=== PATIENT | female | born 1945 | race African-American/Black ===

== ENCOUNTER 2016-05-16 10:00 | Outpatient (RCR) | payer MEDICARE ==
[2016-02-22 10:44] VITALS: BP 97/71; PULSE 83; TEMP 98.9
[2016-02-22 10:47] LABS: ADD PATHOLOGY DIFF REVIEW NO
[2016-02-22 10:49] LABS: MEAN CELL VOLUME 95 fl (80.0-100.0); MEAN CORPUSCULAR HGB CONC 33 g/dl (33.0-37.0); MEAN PLATELET VOLUME 10.3 fl (7.4-10.4); PLATELET COUNT 153 K/mm3 (130-400); RED BLOOD COUNT 3.35 M/mm3 (4.10-5.30); REDCELL DISTRIBUTION WIDTH-CV 18.6 % (11.5-14.5); WHITE BLOOD COUNT 9.4 K/mm3 (4.8-10.8)
[2016-02-22 10:53] LABS: HEMATOCRIT 31.9 % (37.0-47.0); HEMOGLOBIN 10.4 g/dl (12.5-16.0); MEAN CORPUSCULAR HEMOGLOBIN 31 pg (27.0-31.0)
[2016-02-22 11:11] LABS: ADJUSTED CALCIUM 8.4 mg/dL (8.4-10.2); ALBUMIN 3.7 gm/dL (3.5-5.0); BILIRUBIN,TOTAL 0.4 mg/dL (0.0-1.0); CALCIUM 8.2 mg/dL (8.4-10.2); CREATININE, serum 0.56 mg/dL (0.52-1.25); POTASSIUM 3.6 mmol/L (3.4-5.0); TOTAL PROTEIN 6.5 gm/dL (6.4-8.2)
[2016-02-22 11:23] LABS: BAND 20 % (0-10); EOSINOPHIL 2 % (0-4); NEUTROPHILS 52 % (42.0-75.2); TOTAL CELLS COUNTED 100
[2016-02-22 11:24] LABS: ANISOCYTOSIS 2+; HYPOCHROMIA 1+; POIKILOCYTOSIS 1+; POLYCHROMASIA 1+
[2016-02-22 11:25] LABS: SCHISTOCYTES 1+; TEAR DROP CELLS 1+
[2016-02-27 10:12] VITALS: BP 108/68; PULSE 86; TEMP 97.5
[2016-02-27 10:20] LABS: ADD PATHOLOGY DIFF REVIEW NO
[2016-02-27 10:24] LABS: MEAN CELL VOLUME 96 fl (80.0-100.0); MEAN CORPUSCULAR HGB CONC 32 g/dl (33.0-37.0); MEAN PLATELET VOLUME 10.4 fl (7.4-10.4); PLATELET COUNT 201 K/mm3 (130-400); RED BLOOD COUNT 3.47 M/mm3 (4.10-5.30); REDCELL DISTRIBUTION WIDTH-CV 18.7 % (11.5-14.5); WHITE BLOOD COUNT 6.4 K/mm3 (4.8-10.8)
[2016-02-27 10:27] LABS: HEMATOCRIT 33.2 % (37.0-47.0); HEMOGLOBIN 10.7 g/dl (12.5-16.0); MEAN CORPUSCULAR HEMOGLOBIN 31 pg (27.0-31.0)
[2016-02-27 10:41] LABS: BAND 5 % (0-10); BASOPHIL 1 % (0-2); METAMYELOCYTE 2 % (0-0); NEUTROPHILS 61 % (42.0-75.2); PLATELET ESTIMATE NORMAL (NORMAL); TOTAL CELLS COUNTED 100
[2016-02-27 10:42] LABS: OVALOCYTES 1+; SCHISTOCYTES 1+; TEAR DROP CELLS 1+
[2016-03-07 10:11] LABS: ADD PATHOLOGY DIFF REVIEW NO
[2016-03-07 10:16] LABS: MEAN CELL VOLUME 95 fl (80.0-100.0); MEAN CORPUSCULAR HGB CONC 33 g/dl (33.0-37.0); MEAN PLATELET VOLUME 10.9 fl (7.4-10.4); PLATELET COUNT 128 K/mm3 (130-400); REDCELL DISTRIBUTION WIDTH-CV 18.1 % (11.5-14.5)
[2016-03-07 10:17] VITALS: BP 108/63; PULSE 95; TEMP 98.1
[2016-03-07 10:21] LABS: HEMOGLOBIN 11.8 g/dl (12.5-16.0); MEAN CORPUSCULAR HEMOGLOBIN 31 pg (27.0-31.0); WHITE BLOOD COUNT 25.9 K/mm3 (4.8-10.8)
[2016-03-07 10:46] LABS: ANISOCYTOSIS 1+; BAND 11 % (0-10); HYPOCHROMIA 1+; NEUTROPHILS 81 % (42.0-75.2); PLATELET ESTIMATE DECREASED (NORMAL); TEAR DROP CELLS 2+; TOTAL CELLS COUNTED 200
[2016-03-14 10:48] VITALS: BP 120/54; PULSE 75; TEMP 97.6
[2016-03-14 11:22] LABS: ADD PATHOLOGY DIFF REVIEW NO
[2016-03-14 11:27] LABS: MEAN CELL VOLUME 94 fl (80.0-100.0); MEAN CORPUSCULAR HGB CONC 33 g/dl (33.0-37.0); MEAN PLATELET VOLUME 11.2 fl (7.4-10.4); PLATELET COUNT 101 K/mm3 (130-400); RED BLOOD COUNT 3.54 M/mm3 (4.10-5.30); REDCELL DISTRIBUTION WIDTH-CV 17.1 % (11.5-14.5); WHITE BLOOD COUNT 6.6 K/mm3 (4.8-10.8)
[2016-03-14 11:28] LABS: HEMATOCRIT 33.3 % (37.0-47.0); MEAN CORPUSCULAR HEMOGLOBIN 31 pg (27.0-31.0)
[2016-03-14 11:38] LABS: ADJUSTED CALCIUM 8.6 mg/dL (8.4-10.2); ALBUMIN 3.9 gm/dL (3.5-5.0); BILIRUBIN,TOTAL 0.5 mg/dL (0.0-1.0); CALCIUM 8.5 mg/dL (8.4-10.2); CREATININE, serum 0.53 mg/dL (0.52-1.25); POTASSIUM 3.7 mmol/L (3.4-5.0); TOTAL PROTEIN 6.7 gm/dL (6.4-8.2)
[2016-03-14 12:00] LABS: BAND 23 % (0-10); EOSINOPHIL 2 % (0-4); NEUTROPHILS 51 % (42.0-75.2); PLATELET ESTIMATE DECREASED (NORMAL); TEAR DROP CELLS 2+; TOTAL CELLS COUNTED 100
[2016-03-21 10:28] LABS: ADD PATHOLOGY DIFF REVIEW NO
[2016-03-21 10:32] VITALS: BP 113/74; PULSE 77; TEMP 98.7
[2016-03-21 10:34] LABS: MEAN CELL VOLUME 94 fl (80.0-100.0); MEAN CORPUSCULAR HGB CONC 32 g/dl (33.0-37.0); MEAN PLATELET VOLUME 10.6 fl (7.4-10.4); PLATELET COUNT 167 K/mm3 (130-400); RED BLOOD COUNT 3.49 M/mm3 (4.10-5.30); REDCELL DISTRIBUTION WIDTH-CV 17.4 % (11.5-14.5); WHITE BLOOD COUNT 11.5 K/mm3 (4.8-10.8)
[2016-03-21 10:39] LABS: HEMATOCRIT 32.7 % (37.0-47.0); HEMOGLOBIN 10.5 g/dl (12.5-16.0); MEAN CORPUSCULAR HEMOGLOBIN 30 pg (27.0-31.0)
[2016-03-21 10:52] LABS: EOSINOPHIL 2 % (0-4); NEUTROPHILS 78 % (42.0-75.2); PLATELET ESTIMATE NORMAL (NORMAL); TOTAL CELLS COUNTED 100
[2016-03-28 10:12] VITALS: BP 100/67; PULSE 74; TEMP 99.1
[2016-03-28 11:41] LABS: ADD PATHOLOGY DIFF REVIEW NO
[2016-03-28 11:47] LABS: MEAN CELL VOLUME 94 fl (80.0-100.0); MEAN CORPUSCULAR HEMOGLOBIN 31 pg (27.0-31.0); MEAN CORPUSCULAR HGB CONC 33 g/dl (33.0-37.0); PLATELET COUNT 193 K/mm3 (130-400); RED BLOOD COUNT 3.92 M/mm3 (4.10-5.30)
[2016-03-28 11:55] LABS: HEMATOCRIT 36.9 % (37.0-47.0)
[2016-03-28 12:00] LABS: WHITE BLOOD COUNT 33.2 K/mm3 (4.8-10.8)
[2016-03-28 13:55] LABS: NEUTROPHILS 91 % (42.0-75.2); TOTAL CELLS COUNTED 100
[2016-03-28 13:56] LABS: ROULEAUX 1+
[2016-04-04 10:22] VITALS: BP 119/79; PULSE 83; TEMP 98.3
[2016-04-04 10:38] LABS: ADD PATHOLOGY DIFF REVIEW NO
[2016-04-04 10:49] LABS: MEAN CELL VOLUME 93 fl (80.0-100.0); MEAN CORPUSCULAR HGB CONC 33 g/dl (33.0-37.0); MEAN PLATELET VOLUME 11.4 fl (7.4-10.4); PLATELET COUNT 127 K/mm3 (130-400); RED BLOOD COUNT 3.63 M/mm3 (4.10-5.30); REDCELL DISTRIBUTION WIDTH-CV 17.9 % (11.5-14.5); WHITE BLOOD COUNT 7.4 K/mm3 (4.8-10.8)
[2016-04-04 10:52] LABS: HEMATOCRIT 33.8 % (37.0-47.0); HEMOGLOBIN 11.1 g/dl (12.5-16.0); MEAN CORPUSCULAR HEMOGLOBIN 31 pg (27.0-31.0)
[2016-04-04 10:53] LABS: ADJUSTED CALCIUM 8.5 mg/dL (8.4-10.2); ALBUMIN 4.2 gm/dL (3.5-5.0); BILIRUBIN,TOTAL 0.6 mg/dL (0.0-1.0); CALCIUM 8.7 mg/dL (8.4-10.2); CREATININE, serum 0.67 mg/dL (0.52-1.25); POTASSIUM 4.1 mmol/L (3.4-5.0); TOTAL PROTEIN 7.2 gm/dL (6.4-8.2)
[2016-04-04 12:02] LABS: BAND 16 % (0-10); BASOPHIL 2 % (0-2); METAMYELOCYTE 1 % (0-0); NEUTROPHILS 55 % (42.0-75.2); TOTAL CELLS COUNTED 100
[2016-04-04 12:03] LABS: ANISOCYTOSIS 1+; OVALOCYTES 1+; PLATELET ESTIMATE DECREASED (NORMAL)
[2016-04-04 12:04] LABS: TEAR DROP CELLS 1+
[2016-04-11 10:25] VITALS: BP 121/67; PULSE 86; TEMP 97.8
[2016-04-11 10:33] LABS: ADD PATHOLOGY DIFF REVIEW NO
[2016-04-11 10:45] LABS: MEAN CELL VOLUME 95 fl (80.0-100.0); MEAN CORPUSCULAR HGB CONC 32 g/dl (33.0-37.0); MEAN PLATELET VOLUME 10.7 fl (7.4-10.4); PLATELET COUNT 145 K/mm3 (130-400); RED BLOOD COUNT 3.38 M/mm3 (4.10-5.30); REDCELL DISTRIBUTION WIDTH-CV 18.6 % (11.5-14.5); WHITE BLOOD COUNT 11.2 K/mm3 (4.8-10.8)
[2016-04-11 10:54] LABS: HEMATOCRIT 32.1 % (37.0-47.0); HEMOGLOBIN 10.3 g/dl (12.5-16.0); MEAN CORPUSCULAR HEMOGLOBIN 30 pg (27.0-31.0)
[2016-04-11 12:48] LABS: BAND 21 % (0-10); EOSINOPHIL 2 % (0-4); METAMYELOCYTE 2 % (0-0); NEUTROPHILS 46 % (42.0-75.2); TOTAL CELLS COUNTED 100
[2016-04-11 12:51] LABS: ANISOCYTOSIS 2+; TEAR DROP CELLS 1+
[2016-04-18 10:46] VITALS: BP 105/64; PULSE 75; TEMP 98.3
[2016-04-18 10:52] LABS: ADD PATHOLOGY DIFF REVIEW NO
[2016-04-18 11:05] LABS: HEMATOCRIT 38.1 % (37.0-47.0); HEMOGLOBIN 12.5 g/dl (12.5-16.0); MEAN CELL VOLUME 94 fl (80.0-100.0); MEAN CORPUSCULAR HEMOGLOBIN 31 pg (27.0-31.0); MEAN CORPUSCULAR HGB CONC 33 g/dl (33.0-37.0); MEAN PLATELET VOLUME 11.4 fl (7.4-10.4); PLATELET COUNT 135 K/mm3 (130-400); RED BLOOD COUNT 4.07 M/mm3 (4.10-5.30); REDCELL DISTRIBUTION WIDTH-CV 18.7 % (11.5-14.5)
[2016-04-18 11:10] LABS: WHITE BLOOD COUNT 39.6 K/mm3 (4.8-10.8)
[2016-04-18 11:32] LABS: NEUTROPHILS 93 % (42.0-75.2); TOTAL CELLS COUNTED 100
[2016-04-18 11:35] LABS: TEAR DROP CELLS 1+
[2016-04-25 09:55] VITALS: BP 137/80; PULSE 72; TEMP 98.5
[2016-04-25 10:29] LABS: ADD PATHOLOGY DIFF REVIEW NO
[2016-04-25 10:37] LABS: HEMATOCRIT 32.1 % (37.0-47.0); HEMOGLOBIN 10.4 g/dl (12.5-16.0); MEAN CELL VOLUME 93 fl (80.0-100.0); MEAN CORPUSCULAR HEMOGLOBIN 30 pg (27.0-31.0); MEAN CORPUSCULAR HGB CONC 32 g/dl (33.0-37.0); MEAN PLATELET VOLUME 11.5 fl (7.4-10.4); PLATELET COUNT 78 K/mm3 (130-400); RED BLOOD COUNT 3.44 M/mm3 (4.10-5.30); REDCELL DISTRIBUTION WIDTH-CV 17.4 % (11.5-14.5); WHITE BLOOD COUNT 4.2 K/mm3 (4.8-10.8)
[2016-04-25 10:47] LABS: ADJUSTED CALCIUM 9.2 mg/dL (8.4-10.2); BILIRUBIN,TOTAL 0.6 mg/dL (0.0-1.0); CALCIUM 9.2 mg/dL (8.4-10.2); CREATININE, serum 0.63 mg/dL (0.52-1.25); POTASSIUM 4.1 mmol/L (3.4-5.0); TOTAL PROTEIN 6.8 gm/dL (6.4-8.2)
[2016-04-25 10:55] LABS: BAND 4 % (0-10); NEUTROPHILS 49 % (42.0-75.2); PLATELET ESTIMATE DECREASED (NORMAL); TOTAL CELLS COUNTED 100
[2016-05-02 10:19] VITALS: BP 121/70; PULSE 79; TEMP 98.5
[2016-05-02 10:38] LABS: ADD PATHOLOGY DIFF REVIEW NO
[2016-05-02 10:44] LABS: MEAN CELL VOLUME 95 fl (80.0-100.0); MEAN CORPUSCULAR HGB CONC 32 g/dl (33.0-37.0); MEAN PLATELET VOLUME 10.5 fl (7.4-10.4); PLATELET COUNT 164 K/mm3 (130-400); RED BLOOD COUNT 3.31 M/mm3 (4.10-5.30); WHITE BLOOD COUNT 8.3 K/mm3 (4.8-10.8)
[2016-05-02 10:45] LABS: HEMATOCRIT 31.5 % (37.0-47.0); HEMOGLOBIN 10.2 g/dl (12.5-16.0); MEAN CORPUSCULAR HEMOGLOBIN 31 pg (27.0-31.0)
[2016-05-02 14:35] LABS: ANISOCYTOSIS 2+; BAND 10 % (0-10); EOSINOPHIL 2 % (0-4); NEUTROPHILS 57 % (42.0-75.2); POLYCHROMASIA 1+; TOTAL CELLS COUNTED 100
[2016-05-02 14:36] LABS: TEAR DROP CELLS 1+
[2016-05-09 10:37] VITALS: BP 100/66; PULSE 82; TEMP 98
[2016-05-09 10:37] LABS: ADD PATHOLOGY DIFF REVIEW NO
[2016-05-09 10:41] LABS: MEAN CELL VOLUME 94 fl (80.0-100.0); MEAN CORPUSCULAR HGB CONC 33 g/dl (33.0-37.0); MEAN PLATELET VOLUME 10.7 fl (7.4-10.4); PLATELET COUNT 127 K/mm3 (130-400); RED BLOOD COUNT 3.65 M/mm3 (4.10-5.30); REDCELL DISTRIBUTION WIDTH-CV 18.9 % (11.5-14.5)
[2016-05-09 10:50] LABS: HEMATOCRIT 34.3 % (37.0-47.0); HEMOGLOBIN 11.4 g/dl (12.5-16.0); MEAN CORPUSCULAR HEMOGLOBIN 31 pg (27.0-31.0); WHITE BLOOD COUNT 31.6 K/mm3 (4.8-10.8)
[2016-05-09 11:05] LABS: BAND 16 % (0-10); NEUTROPHILS 79 % (42.0-75.2); OVALOCYTES 1+; PLATELET ESTIMATE NORMAL (NORMAL); TEAR DROP CELLS 2+
[2016-05-09 11:06] LABS: TOTAL CELLS COUNTED 300
[~2016-05-16] VITALS: Ht 165.1 cm; Wt 75.5 kg
[~2016-05-16 10:00] MED LIST: AMOXICILLIN 8751 TAB PO; CALCIUM 600/VIT1 CAP PO; CRESTOR 10MG10 MG PO; FISH OIL 1000MG1 CAP PO; FOSAMAX 70MG TA70 MG PO; K-DUR 10 MEQ T10 MEQ PO; LASIX 20MG TABL20 MG PO; NORCO 325 MG-51 TAB PO
[2016-05-16 10:36] VITALS: BP 110/65; PULSE 75; TEMP 97.8
[2016-05-16 10:39] LABS: ADD PATHOLOGY DIFF REVIEW NO
[2016-05-16 10:46] LABS: MEAN CELL VOLUME 95 fl (80.0-100.0); MEAN CORPUSCULAR HGB CONC 33 g/dl (33.0-37.0); MEAN PLATELET VOLUME 11.2 fl (7.4-10.4); PLATELET COUNT 121 K/mm3 (130-400); RED BLOOD COUNT 3.63 M/mm3 (4.10-5.30); REDCELL DISTRIBUTION WIDTH-CV 18.3 % (11.5-14.5); WHITE BLOOD COUNT 8.6 K/mm3 (4.8-10.8)
[2016-05-16 10:52] LABS: HEMATOCRIT 34.5 % (37.0-47.0); HEMOGLOBIN 11.2 g/dl (12.5-16.0); MEAN CORPUSCULAR HEMOGLOBIN 31 pg (27.0-31.0)
[2016-05-16 10:58] LABS: BAND 14 % (0-10); EOSINOPHIL 2 % (0-4); METAMYELOCYTE 1 % (0-0); MYELOCYTE 1 % (0-0); NEUTROPHILS 55 % (42.0-75.2); PLATELET ESTIMATE NORMAL (NORMAL); POLYCHROMASIA 1+; TEAR DROP CELLS 1+; TOTAL CELLS COUNTED 100
[2016-05-16 11:10] LABS: ADJUSTED CALCIUM 9.1 mg/dL (8.4-10.2); ALBUMIN 3.9 gm/dL (3.5-5.0); BILIRUBIN,TOTAL 0.7 mg/dL (0.0-1.0); CREATININE, serum 0.63 mg/dL (0.52-1.25); POTASSIUM 4.3 mmol/L (3.4-5.0); TOTAL PROTEIN 6.6 gm/dL (6.4-8.2)
[2016-07-22] MEDS ORDERED: ELIQUIS 2.5 PO (09:07)
[2016-07-22] MEDS ORDERED: CHEMO (09:28)
[2016-07-22] MEDS ORDERED: PERCOCET 325 MG1 TA2 PO (14:38)
[2016-07-22] MEDS ORDERED: FISH OIL 1000MG1 CAP PO (14:42)
[2016-07-22] MEDS ORDERED: NEURONTIN300 MG/CAP PO (14:43)
[2016-07-22] MEDS ORDERED: LAMISIL1% TOP (14:43)
[2016-07-22] MEDS ORDERED: LOMOTIL 0.025 M1 TAB PO (14:44)
[2016-07-22] MEDS ORDERED: ZOFRAN8 MG PO (14:47)
[2016-07-22] MEDS ORDERED: VITAMIN D 1001000 IU PO (14:47)
== END 2016-05-22 | disposition still patient (30) ==
LOC: EUO
PROVIDERS: Internal Medicine Medical Oncology
DX: C25.0 Malignant neoplasm of head of pancreas (principal); K86.81 Exocrine pancreatic insufficiency; Z45.2 Encounter for adjustment and management of vascular access device
CPT/HCPCS: J1644

== ENCOUNTER 2016-07-04 10:00 | Outpatient (RCR) | payer MEDICARE ==
[2016-05-23 10:54] VITALS: BP 118/72; PULSE 80; TEMP 98.1
[2016-05-23 10:58] LABS: ADD PATHOLOGY DIFF REVIEW NO
[2016-05-23 11:01] LABS: HEMATOCRIT 33.7 % (37.0-47.0); MEAN CELL VOLUME 96 fl (80.0-100.0); MEAN CORPUSCULAR HEMOGLOBIN 31 pg (27.0-31.0); MEAN CORPUSCULAR HGB CONC 33 g/dl (33.0-37.0); MEAN PLATELET VOLUME 10.7 fl (7.4-10.4); PLATELET COUNT 168 K/mm3 (130-400); RED BLOOD COUNT 3.53 M/mm3 (4.10-5.30); REDCELL DISTRIBUTION WIDTH-CV 18.6 % (11.5-14.5); WHITE BLOOD COUNT 11.6 K/mm3 (4.8-10.8)
[2016-05-23 11:30] LABS: BAND 7 % (0-10); EOSINOPHIL 1 % (0-4); NEUTROPHILS 74 % (42.0-75.2); TOTAL CELLS COUNTED 100
[2016-05-23 11:31] LABS: PLATELET ESTIMATE NORMAL (NORMAL)
[2016-05-30 11:20] VITALS: BP 109/60; PULSE 94; TEMP 98.2
[2016-05-30 11:40] LABS: ADD PATHOLOGY DIFF REVIEW NO
[2016-05-30 11:45] LABS: HEMOGLOBIN 12.8 g/dl (12.5-16.0); MEAN CELL VOLUME 95 fl (80.0-100.0); MEAN CORPUSCULAR HEMOGLOBIN 31 pg (27.0-31.0); MEAN CORPUSCULAR HGB CONC 33 g/dl (33.0-37.0); MEAN PLATELET VOLUME 10.9 fl (7.4-10.4); PLATELET COUNT 186 K/mm3 (130-400); RED BLOOD COUNT 4.11 M/mm3 (4.10-5.30); REDCELL DISTRIBUTION WIDTH-CV 18.6 % (11.5-14.5)
[2016-05-30 11:46] LABS: WHITE BLOOD COUNT 39.2 K/mm3 (4.8-10.8)
[2016-05-30 11:57] LABS: BAND 12 % (0-10); NEUTROPHILS 85 % (42.0-75.2); PLATELET ESTIMATE NORMAL (NORMAL); TOTAL CELLS COUNTED 100
[2016-06-06 10:31] VITALS: BP 97/65; PULSE 89; TEMP 98
[2016-06-06 10:31] LABS: ADD PATHOLOGY DIFF REVIEW NO
[2016-06-06 10:35] LABS: MEAN CELL VOLUME 92 fl (80.0-100.0); MEAN CORPUSCULAR HGB CONC 33 g/dl (33.0-37.0); MEAN PLATELET VOLUME 11.7 fl (7.4-10.4); PLATELET COUNT 82 K/mm3 (130-400); RED BLOOD COUNT 3.61 M/mm3 (4.10-5.30); REDCELL DISTRIBUTION WIDTH-CV 16.6 % (11.5-14.5); WHITE BLOOD COUNT 3.4 K/mm3 (4.8-10.8)
[2016-06-06 10:39] LABS: HEMATOCRIT 33.2 % (37.0-47.0); HEMOGLOBIN 11.1 g/dl (12.5-16.0); MEAN CORPUSCULAR HEMOGLOBIN 31 pg (27.0-31.0)
[2016-06-06 10:55] LABS: BAND 17 % (0-10); BASOPHIL 1 % (0-2); EOSINOPHIL 5 % (0-4); METAMYELOCYTE 1 % (0-0); NEUTROPHILS 29 % (42.0-75.2); TOTAL CELLS COUNTED 100
[2016-06-06 10:56] LABS: PLATELET ESTIMATE DECREASED (NORMAL)
[2016-06-12 10:19] VITALS: BP 107/65; PULSE 88; TEMP 97.8
[2016-06-12 10:39] LABS: ADD PATHOLOGY DIFF REVIEW NO
[2016-06-12 10:44] LABS: HEMATOCRIT 33.1 % (37.0-47.0); HEMOGLOBIN 11.1 g/dl (12.5-16.0); MEAN CELL VOLUME 94 fl (80.0-100.0); MEAN CORPUSCULAR HEMOGLOBIN 31 pg (27.0-31.0); MEAN CORPUSCULAR HGB CONC 34 g/dl (33.0-37.0); MEAN PLATELET VOLUME 10.6 fl (7.4-10.4); PLATELET COUNT 142 K/mm3 (130-400); RED BLOOD COUNT 3.54 M/mm3 (4.10-5.30); REDCELL DISTRIBUTION WIDTH-CV 17.5 % (11.5-14.5); WHITE BLOOD COUNT 9.6 K/mm3 (4.8-10.8)
[2016-06-12 10:59] LABS: BAND 14 % (0-10); EOSINOPHIL 1 % (0-4); NEUTROPHILS 67 % (42.0-75.2); TOTAL CELLS COUNTED 100
[2016-06-20 10:20] VITALS: BP 114/66; PULSE 79; TEMP 97.9
[2016-06-20 10:24] LABS: ADD PATHOLOGY DIFF REVIEW NO
[2016-06-20 10:42] LABS: MEAN CELL VOLUME 94 fl (80.0-100.0); MEAN CORPUSCULAR HGB CONC 33 g/dl (33.0-37.0); MEAN PLATELET VOLUME 10.8 fl (7.4-10.4); PLATELET COUNT 135 K/mm3 (130-400); RED BLOOD COUNT 3.51 M/mm3 (4.10-5.30); REDCELL DISTRIBUTION WIDTH-CV 18.6 % (11.5-14.5)
[2016-06-20 10:52] LABS: ADJUSTED CALCIUM 8.7 mg/dL (8.4-10.2); ALBUMIN 3.5 gm/dL (3.5-5.0); BILIRUBIN,TOTAL 0.8 mg/dL (0.0-1.0); CALCIUM 8.3 mg/dL (8.4-10.2); CREATININE, serum 0.6 mg/dL (0.52-1.25); HEMATOCRIT 32.9 % (37.0-47.0); MEAN CORPUSCULAR HEMOGLOBIN 31 pg (27.0-31.0); TOTAL PROTEIN 6.3 gm/dL (6.4-8.2); WHITE BLOOD COUNT 33.4 K/mm3 (4.8-10.8)
[2016-06-20 11:05] LABS: POTASSIUM 2.8 mmol/L (3.4-5.0)
[2016-06-20 11:27] LABS: BAND 8 % (0-10); NEUTROPHILS 86 % (42.0-75.2); TOTAL CELLS COUNTED 300
[2016-06-20 11:28] LABS: PLATELET ESTIMATE NORMAL (NORMAL)
[2016-06-20 11:32] LABS: ANISOCYTOSIS 1+; TOXIC GRANULATION PRESENT
[2016-06-27 10:20] VITALS: BP 116/73; PULSE 90; TEMP 98.2
[2016-06-27 10:29] LABS: ADD PATHOLOGY DIFF REVIEW NO
[2016-06-27 10:43] LABS: MEAN CELL VOLUME 94 fl (80.0-100.0); MEAN CORPUSCULAR HGB CONC 33 g/dl (33.0-37.0); MEAN PLATELET VOLUME 11.8 fl (7.4-10.4); PLATELET COUNT 91 K/mm3 (130-400); RED BLOOD COUNT 3.38 M/mm3 (4.10-5.30); WHITE BLOOD COUNT 4.6 K/mm3 (4.8-10.8)
[2016-06-27 10:46] LABS: HEMATOCRIT 31.7 % (37.0-47.0); HEMOGLOBIN 10.5 g/dl (12.5-16.0); MEAN CORPUSCULAR HEMOGLOBIN 31 pg (27.0-31.0)
[2016-06-27 15:59] LABS: BAND 12 % (0-10); BASOPHIL 2 % (0-2); NEUTROPHILS 26 % (42.0-75.2); PLATELET ESTIMATE DECREASED (NORMAL); TOTAL CELLS COUNTED 100
[2016-06-27 16:02] LABS: ANISOCYTOSIS 2+; POLYCHROMASIA 1+; TEAR DROP CELLS 2+
[2016-07-04 10:16] VITALS: BP 102/60; PULSE 88; TEMP 98.7
[2016-07-04 10:30] LABS: ADD PATHOLOGY DIFF REVIEW NO
[2016-07-04 10:31] LABS: MEAN CELL VOLUME 96 fl (80.0-100.0); MEAN CORPUSCULAR HGB CONC 33 g/dl (33.0-37.0); MEAN PLATELET VOLUME 10.1 fl (7.4-10.4); PLATELET COUNT 137 K/mm3 (130-400); RED BLOOD COUNT 2.98 M/mm3 (4.10-5.30); REDCELL DISTRIBUTION WIDTH-CV 19.1 % (11.5-14.5); WHITE BLOOD COUNT 15.8 K/mm3 (4.8-10.8)
[2016-07-04 10:39] LABS: HEMATOCRIT 28.5 % (37.0-47.0); HEMOGLOBIN 9.4 g/dl (12.5-16.0); MEAN CORPUSCULAR HEMOGLOBIN 32 pg (27.0-31.0)
[2016-07-04 12:29] LABS: NEUTROPHILS 72 % (42.0-75.2)
[2016-07-04 12:32] LABS: PLATELET ESTIMATE NORMAL (NORMAL)
[2016-07-04 12:34] LABS: ANISOCYTOSIS 2+; OVALOCYTES 1+; POIKILOCYTOSIS 2+; POLYCHROMASIA 1+; TEAR DROP CELLS 2+
[2016-07-04 12:41] LABS: DOHLE BODIES PRESENT; TOXIC GRANULATION PRESENT
[2016-07-04 12:44] LABS: BAND 8 % (0-10); METAMYELOCYTE 2 % (0-0); MYELOCYTE 2 % (0-0); TOTAL CELLS COUNTED 100
[2016-07-07 12:30] VITALS: BP 138/66; PULSE 82; TEMP 99.3
[2016-07-22] MEDS ORDERED: ELIQUIS 2.5 PO (09:07)
[2016-07-22] MEDS ORDERED: CHEMO (09:28)
[2016-07-22] MEDS ORDERED: PERCOCET 325 MG1 TA2 PO (14:38)
[2016-07-22] MEDS ORDERED: FISH OIL 1000MG1 CAP PO (14:42)
[2016-07-22] MEDS ORDERED: NEURONTIN300 MG/CAP PO (14:43)
[2016-07-22] MEDS ORDERED: LAMISIL1% TOP (14:43)
[2016-07-22] MEDS ORDERED: LOMOTIL 0.025 M1 TAB PO (14:44)
[2016-07-22] MEDS ORDERED: VITAMIN D 1001000 IU PO (14:47)
[2016-07-22] MEDS ORDERED: ZOFRAN8 MG PO (14:47)
== END 2016-07-18 10:18 | disposition home or self-care (01) ==
LOC: EUO 10:00
PROVIDERS: Internal Medicine; Internal Medicine Medical Oncology
DX: Z45.2 Encounter for adjustment and management of vascular access device (principal)
CPT/HCPCS: J1644

== ENCOUNTER 2016-10-17 10:00 | Outpatient (RCR) | payer MEDICARE ==
[2016-07-21 09:40] VITALS: BP 121/67; PULSE 80; TEMP 99
[2016-07-22 09:15] VITALS: BP 132/71; PULSE 78; TEMP 98.4
[2016-07-25 10:30] LABS: ADD PATHOLOGY DIFF REVIEW NO
[2016-07-25 10:40] VITALS: BP 101/76; PULSE 88; TEMP 98
[2016-07-25 10:45] LABS: MEAN CELL VOLUME 94 fl (80.0-100.0); MEAN CORPUSCULAR HGB CONC 32 g/dl (33.0-37.0); PLATELET COUNT 262 K/mm3 (130-400); RED BLOOD COUNT 3.53 M/mm3 (4.10-5.30); REDCELL DISTRIBUTION WIDTH-CV 17.7 % (11.5-14.5)
[2016-07-25 10:50] LABS: HEMATOCRIT 33.3 % (37.0-47.0); HEMOGLOBIN 10.8 g/dl (12.5-16.0); MEAN CORPUSCULAR HEMOGLOBIN 31 pg (27.0-31.0)
[2016-07-25 10:51] LABS: WHITE BLOOD COUNT 35.9 K/mm3 (4.8-10.8)
[2016-07-25 10:57] LABS: ADJUSTED CALCIUM 9.2 mg/dL (8.4-10.2); ALBUMIN 3.8 gm/dL (3.5-5.0); BILIRUBIN,TOTAL 0.8 mg/dL (0.0-1.0); CREATININE, serum 0.63 mg/dL (0.52-1.25); POTASSIUM 3.6 mmol/L (3.4-5.0); TOTAL PROTEIN 7.8 gm/dL (6.4-8.2)
[2016-07-25 12:43] LABS: ANISOCYTOSIS 2+; BAND 5 % (0-10); NEUTROPHILS 91 % (42.0-75.2); PLATELET ESTIMATE NORMAL (NORMAL)
[2016-07-25 12:44] LABS: TOTAL CELLS COUNTED 300
[2016-08-01 10:07] LABS: MEAN CELL VOLUME 93 fl (80.0-100.0); MEAN CORPUSCULAR HGB CONC 32 g/dl (33.0-37.0); MEAN PLATELET VOLUME 10.8 fl (7.4-10.4); PLATELET COUNT 85 K/mm3 (130-400); RED BLOOD COUNT 3.18 M/mm3 (4.10-5.30); REDCELL DISTRIBUTION WIDTH-CV 17.3 % (11.5-14.5); WHITE BLOOD COUNT 4.7 K/mm3 (4.8-10.8)
[2016-08-01 10:20] LABS: ADJUSTED CALCIUM 9.4 mg/dL (8.4-10.2); ALBUMIN 3.7 gm/dL (3.5-5.0); BILIRUBIN,TOTAL 0.6 mg/dL (0.0-1.0); CALCIUM 9.2 mg/dL (8.4-10.2); CREATININE, serum 0.71 mg/dL (0.52-1.25); TOTAL PROTEIN 7.2 gm/dL (6.4-8.2)
[2016-08-01 10:33] LABS: HEMATOCRIT 29.7 % (37.0-47.0); HEMOGLOBIN 9.6 g/dl (12.5-16.0); MEAN CORPUSCULAR HEMOGLOBIN 30 pg (27.0-31.0)
[2016-08-01 11:54] LABS: BAND 20 % (0-10); EOSINOPHIL 1 % (0-4); METAMYELOCYTE 3 % (0-0); NEUTROPHILS 38 % (42.0-75.2); TOTAL CELLS COUNTED 100
[2016-08-01 11:55] LABS: ANISOCYTOSIS 2+; DOHLE BODIES PRESENT; TOXIC GRANULATION PRESENT
[2016-08-01 11:56] LABS: POLYCHROMASIA 1+; TEAR DROP CELLS 2+
[2016-08-01 11:57] LABS: ADD PATHOLOGY DIFF REVIEW YES
[2016-08-01 12:00] LABS: PLATELET ESTIMATE DECREASED (NORMAL)
[2016-08-04 14:29] LABS: PATHOLOGY DIFF REVIEW OK
[2016-08-07 11:26] VITALS: BP 111/75; PULSE 77; TEMP 98.2
[2016-08-07 11:39] LABS: ADD PATHOLOGY DIFF REVIEW NO
[2016-08-07 11:44] LABS: MEAN CELL VOLUME 94 fl (80.0-100.0); MEAN CORPUSCULAR HGB CONC 32 g/dl (33.0-37.0); MEAN PLATELET VOLUME 10.6 fl (7.4-10.4); PLATELET COUNT 117 K/mm3 (130-400); RED BLOOD COUNT 3.22 M/mm3 (4.10-5.30); REDCELL DISTRIBUTION WIDTH-CV 17.6 % (11.5-14.5)
[2016-08-07 12:22] LABS: HEMATOCRIT 30.3 % (37.0-47.0); HEMOGLOBIN 9.8 g/dl (12.5-16.0); MEAN CORPUSCULAR HEMOGLOBIN 30 pg (27.0-31.0)
[2016-08-07 12:24] LABS: BAND 1 % (0-10); BASOPHIL 3 % (0-2); EOSINOPHIL 1 % (0-4); NEUTROPHILS 61 % (42.0-75.2); TOTAL CELLS COUNTED 100
[2016-08-07 12:26] LABS: ANISOCYTOSIS 1+; HYPOCHROMIA 1+; MICROCYTOSIS 1+; POIKILOCYTOSIS 1+; POLYCHROMASIA 1+; ROULEAUX 1+
[2016-08-15 10:28] VITALS: BP 109/68; PULSE 83; TEMP 97.7
[2016-08-15 10:31] LABS: ADD PATHOLOGY DIFF REVIEW NO
[2016-08-15 10:44] LABS: ADJUSTED CALCIUM 9.3 mg/dL (8.4-10.2); ALBUMIN 3.8 gm/dL (3.5-5.0); BILIRUBIN,TOTAL 0.7 mg/dL (0.0-1.0); CALCIUM 9.1 mg/dL (8.4-10.2); CREATININE, serum 0.67 mg/dL (0.52-1.25); TOTAL PROTEIN 6.9 gm/dL (6.4-8.2)
[2016-08-15 10:46] LABS: POTASSIUM 2.8 mmol/L (3.4-5.0)
[2016-08-15 11:00] LABS: MEAN CELL VOLUME 94 fl (80.0-100.0); MEAN CORPUSCULAR HGB CONC 33 g/dl (33.0-37.0); MEAN PLATELET VOLUME 10.6 fl (7.4-10.4); PLATELET COUNT 174 K/mm3 (130-400); RED BLOOD COUNT 3.54 M/mm3 (4.10-5.30)
[2016-08-15 11:12] LABS: HEMATOCRIT 33.2 % (37.0-47.0); HEMOGLOBIN 10.8 g/dl (12.5-16.0); MEAN CORPUSCULAR HEMOGLOBIN 31 pg (27.0-31.0); WHITE BLOOD COUNT 29.6 K/mm3 (4.8-10.8)
[2016-08-15 13:39] LABS: BAND 2 % (0-10); NEUTROPHILS 88 % (42.0-75.2); TOTAL CELLS COUNTED 100
[2016-08-15 13:40] LABS: PLATELET ESTIMATE NORMAL (NORMAL)
[2016-08-20 10:47] VITALS: BP 107/69; PULSE 88; TEMP 97.9
[2016-08-20 10:54] LABS: CALCIUM 9.3 mg/dL (8.4-10.2); CREATININE, serum 0.65 mg/dL (0.52-1.25); POTASSIUM 4.1 mmol/L (3.4-5.0)
[2016-08-22 10:11] LABS: ADD PATHOLOGY DIFF REVIEW NO
[2016-08-22 10:13] VITALS: BP 128/72; PULSE 91; TEMP 98.2
[2016-08-22 10:19] LABS: MEAN CELL VOLUME 92 fl (80.0-100.0); MEAN CORPUSCULAR HGB CONC 33 g/dl (33.0-37.0); MEAN PLATELET VOLUME 11.4 fl (7.4-10.4); PLATELET COUNT 111 K/mm3 (130-400); RED BLOOD COUNT 3.24 M/mm3 (4.10-5.30); REDCELL DISTRIBUTION WIDTH-CV 17.7 % (11.5-14.5); WHITE BLOOD COUNT 5.6 K/mm3 (4.8-10.8)
[2016-08-22 10:20] LABS: HEMATOCRIT 29.9 % (37.0-47.0); MEAN CORPUSCULAR HEMOGLOBIN 31 pg (27.0-31.0)
[2016-08-22 10:26] LABS: ADJUSTED CALCIUM 9.1 mg/dL (8.4-10.2); ALBUMIN 4.2 gm/dL (3.5-5.0); BILIRUBIN,TOTAL 0.5 mg/dL (0.0-1.0); CALCIUM 9.3 mg/dL (8.4-10.2); CREATININE, serum 0.66 mg/dL (0.52-1.25); POTASSIUM 3.5 mmol/L (3.4-5.0); TOTAL PROTEIN 6.8 gm/dL (6.4-8.2)
[2016-08-22 11:34] LABS: ANISOCYTOSIS 2+; BAND 9 % (0-10); NEUTROPHILS 46 % (42.0-75.2); PLATELET ESTIMATE NORMAL (NORMAL); TOTAL CELLS COUNTED 100
[2016-08-28 10:45] VITALS: BP 127/67; PULSE 74; TEMP 98.6
[2016-08-28 10:56] LABS: ADD PATHOLOGY DIFF REVIEW NO
[2016-08-28 11:27] LABS: MEAN CELL VOLUME 94 fl (80.0-100.0); MEAN CORPUSCULAR HGB CONC 33 g/dl (33.0-37.0); MEAN PLATELET VOLUME 10.6 fl (7.4-10.4); PLATELET COUNT 152 K/mm3 (130-400); REDCELL DISTRIBUTION WIDTH-CV 18.9 % (11.5-14.5); WHITE BLOOD COUNT 9.1 K/mm3 (4.8-10.8)
[2016-08-28 11:29] LABS: HEMATOCRIT 28.2 % (37.0-47.0); HEMOGLOBIN 9.2 g/dl (12.5-16.0); MEAN CORPUSCULAR HEMOGLOBIN 31 pg (27.0-31.0)
[2016-08-28 13:06] LABS: BASOPHIL 3 % (0-2); EOSINOPHIL 2 % (0-4); NEUTROPHILS 74 % (42.0-75.2); TOTAL CELLS COUNTED 100
[2016-08-28 13:10] LABS: ANISOCYTOSIS 1+; HYPOCHROMIA 1+; MICROCYTOSIS 1+; POIKILOCYTOSIS 1+; POLYCHROMASIA 1+; ROULEAUX 1+
[2016-09-05 10:50] VITALS: BP 111/68; PULSE 77; TEMP 98.6
[2016-09-05 10:58] LABS: ADD PATHOLOGY DIFF REVIEW NO
[2016-09-05 11:00] LABS: MEAN CELL VOLUME 97 fl (80.0-100.0); MEAN CORPUSCULAR HGB CONC 32 g/dl (33.0-37.0); MEAN PLATELET VOLUME 9.9 fl (7.4-10.4); PLATELET COUNT 151 K/mm3 (130-400); RED BLOOD COUNT 3.52 M/mm3 (4.10-5.30); REDCELL DISTRIBUTION WIDTH-CV 19.7 % (11.5-14.5)
[2016-09-05 11:24] LABS: ADJUSTED CALCIUM 8.8 mg/dL (8.4-10.2); ALBUMIN 3.7 gm/dL (3.5-5.0); BILIRUBIN,TOTAL 0.8 mg/dL (0.0-1.0); CALCIUM 8.6 mg/dL (8.4-10.2); CREATININE, serum 0.65 mg/dL (0.52-1.25); POTASSIUM 3.2 mmol/L (3.4-5.0); TOTAL PROTEIN 6.7 gm/dL (6.4-8.2)
[2016-09-05 11:26] LABS: HEMOGLOBIN 10.8 g/dl (12.5-16.0); MEAN CORPUSCULAR HEMOGLOBIN 31 pg (27.0-31.0)
[2016-09-05 13:11] LABS: BAND 23 % (0-10); NEUTROPHILS 68 % (42.0-75.2); PLATELET ESTIMATE NORMAL (NORMAL); TOTAL CELLS COUNTED 100
[2016-09-12 10:23] VITALS: BP 122/79; PULSE 81; TEMP 98.3
[2016-09-12 10:27] LABS: ADD PATHOLOGY DIFF REVIEW NO
[2016-09-12 10:44] LABS: MEAN CELL VOLUME 94 fl (80.0-100.0); MEAN CORPUSCULAR HGB CONC 33 g/dl (33.0-37.0); MEAN PLATELET VOLUME 11.3 fl (7.4-10.4); PLATELET COUNT 131 K/mm3 (130-400); RED BLOOD COUNT 3.21 M/mm3 (4.10-5.30); REDCELL DISTRIBUTION WIDTH-CV 18.8 % (11.5-14.5); WHITE BLOOD COUNT 4.6 K/mm3 (4.8-10.8)
[2016-09-12 10:54] LABS: HEMATOCRIT 30.1 % (37.0-47.0); HEMOGLOBIN 9.8 g/dl (12.5-16.0); MEAN CORPUSCULAR HEMOGLOBIN 31 pg (27.0-31.0)
[2016-09-12 14:47] LABS: ANISOCYTOSIS 2+; BAND 21 % (0-10); NEUTROPHILS 39 % (42.0-75.2); PLATELET ESTIMATE NORMAL (NORMAL); POLYCHROMASIA 1+; TOTAL CELLS COUNTED 100
[2016-09-29 09:30] VITALS: BP 123/74; PULSE 94; TEMP 98.1
[2016-09-29 09:50] LABS: ADD PATHOLOGY DIFF REVIEW NO
[2016-09-29 09:55] LABS: MEAN CELL VOLUME 95 fl (80.0-100.0); MEAN CORPUSCULAR HGB CONC 33 g/dl (33.0-37.0); MEAN PLATELET VOLUME 10.9 fl (7.4-10.4); PLATELET COUNT 226 K/mm3 (130-400); RED BLOOD COUNT 3.14 M/mm3 (4.10-5.30); REDCELL DISTRIBUTION WIDTH-CV 18.5 % (11.5-14.5)
[2016-09-29 09:58] LABS: HEMATOCRIT 29.7 % (37.0-47.0); HEMOGLOBIN 9.7 g/dl (12.5-16.0); MEAN CORPUSCULAR HEMOGLOBIN 31 pg (27.0-31.0)
[2016-09-29 10:08] LABS: ADJUSTED CALCIUM 8.8 mg/dL (8.4-10.2); ALBUMIN 3.7 gm/dL (3.5-5.0); BILIRUBIN,TOTAL 0.7 mg/dL (0.0-1.0); CALCIUM 8.6 mg/dL (8.4-10.2); CREATININE, serum 0.73 mg/dL (0.52-1.25); POTASSIUM 3.3 mmol/L (3.4-5.0); TOTAL PROTEIN 6.7 gm/dL (6.4-8.2)
[2016-09-29 10:38] LABS: ANISOCYTOSIS 2+; BAND 10 % (0-10); HYPOCHROMIA 1+; NEUTROPHILS 69 % (42.0-75.2); PLATELET ESTIMATE NORMAL (NORMAL); TOTAL CELLS COUNTED 100
[2016-09-29 10:39] LABS: OVALOCYTES 1+; TEAR DROP CELLS 1+
[2016-10-03 10:43] VITALS: BP 89/58; PULSE 95; TEMP 98
[2016-10-10 11:17] VITALS: BP 118/79; PULSE 80; TEMP 98.4
[2016-10-10 11:22] LABS: ADD PATHOLOGY DIFF REVIEW NO
[2016-10-10 11:27] LABS: MEAN CELL VOLUME 93 fl (80.0-100.0); MEAN CORPUSCULAR HGB CONC 32 g/dl (33.0-37.0); MEAN PLATELET VOLUME 11.4 fl (7.4-10.4); PLATELET COUNT 101 K/mm3 (130-400); RED BLOOD COUNT 3.14 M/mm3 (4.10-5.30); REDCELL DISTRIBUTION WIDTH-CV 17.1 % (11.5-14.5); WHITE BLOOD COUNT 3.1 K/mm3 (4.8-10.8)
[2016-10-10 11:30] LABS: HEMATOCRIT 29.3 % (37.0-47.0); HEMOGLOBIN 9.5 g/dl (12.5-16.0); MEAN CORPUSCULAR HEMOGLOBIN 30 pg (27.0-31.0)
[2016-10-10 12:25] LABS: ALBUMIN 3.8 gm/dL (3.5-5.0); BILIRUBIN,TOTAL 0.5 mg/dL (0.0-1.0); CALCIUM 8.8 mg/dL (8.4-10.2); CREATININE, serum 0.68 mg/dL (0.52-1.25); TOTAL PROTEIN 6.7 gm/dL (6.4-8.2)
[2016-10-10 12:28] LABS: BAND 28 % (0-10); BASOPHIL 1 % (0-2); EOSINOPHIL 2 % (0-4); NEUTROPHILS 22 % (42.0-75.2); TOTAL CELLS COUNTED 100
[2016-10-10 12:29] LABS: HYPOCHROMIA 1+; PLATELET ESTIMATE DECREASED (NORMAL)
[~2016-10-17 10:00] MED LIST changes: +CHEMO; +ELIQUIS 2.5 PO; +LAMISIL1% TOP; +LOMOTIL 0.025 M1 TAB PO; +NEURONTIN300 MG/CAP PO; +PERCOCET 325 MG1 TA2 PO; +VITAMIN D 1001000 IU PO; +ZOFRAN8 MG PO
[2016-10-17 11:58] LABS: ADD PATHOLOGY DIFF REVIEW NO
[2016-10-17 12:08] LABS: HEMATOCRIT 29.1 % (37.0-47.0); HEMOGLOBIN 9.4 g/dl (12.5-16.0); MEAN CELL VOLUME 95 fl (80.0-100.0); MEAN CORPUSCULAR HEMOGLOBIN 31 pg (27.0-31.0); MEAN CORPUSCULAR HGB CONC 32 g/dl (33.0-37.0); MEAN PLATELET VOLUME 10.3 fl (7.4-10.4); PLATELET COUNT 157 K/mm3 (130-400); RED BLOOD COUNT 3.07 M/mm3 (4.10-5.30); REDCELL DISTRIBUTION WIDTH-CV 18.4 % (11.5-14.5); WHITE BLOOD COUNT 10.3 K/mm3 (4.8-10.8)
[2016-10-17 13:09] LABS: BAND 12 % (0-10); NEUTROPHILS 62 % (42.0-75.2); TOTAL CELLS COUNTED 100
[2016-10-17 13:10] LABS: ANISOCYTOSIS 1+; PLATELET ESTIMATE NORMAL (NORMAL)
[2016-10-17 14:48] VITALS: BP 124/74; PULSE 80; TEMP 98.3
== END 2016-10-19 | disposition home or self-care (01) ==
LOC: EUO
PROVIDERS: Internal Medicine; Internal Medicine Medical Oncology
DX: Z45.2 Encounter for adjustment and management of vascular access device (principal); C25.9 Malignant neoplasm of pancreas, unspecified
CPT/HCPCS: C1751; J1644

== ENCOUNTER 2017-01-14 09:30 | Outpatient (RCR) | payer MEDICARE ==
[2016-10-24 11:28] VITALS: BP 95/66; PULSE 85; TEMP 97.9
[2016-10-24 11:32] LABS: ADD PATHOLOGY DIFF REVIEW NO
[2016-10-24 11:42] LABS: MEAN CELL VOLUME 93 fl (80.0-100.0); MEAN CORPUSCULAR HGB CONC 33 g/dl (33.0-37.0); PLATELET COUNT 205 K/mm3 (130-400); RED BLOOD COUNT 3.73 M/mm3 (4.10-5.30)
[2016-10-24 11:46] LABS: WHITE BLOOD COUNT 47.8 K/mm3 (4.8-10.8)
[2016-10-24 11:47] LABS: HEMATOCRIT 34.8 % (37.0-47.0); HEMOGLOBIN 11.4 g/dl (12.5-16.0); MEAN CORPUSCULAR HEMOGLOBIN 31 pg (27.0-31.0)
[2016-10-24 11:50] LABS: ADJUSTED CALCIUM 8.8 mg/dL (8.4-10.2); ALBUMIN 3.9 gm/dL (3.5-5.0); BILIRUBIN,TOTAL 0.8 mg/dL (0.0-1.0); CALCIUM 8.7 mg/dL (8.4-10.2); CREATININE, serum 0.68 mg/dL (0.52-1.25); POTASSIUM 3.1 mmol/L (3.4-5.0); TOTAL PROTEIN 7.2 gm/dL (6.4-8.2)
[2016-10-24 13:36] LABS: ANISOCYTOSIS 1+; BAND 23 % (0-10); LYMPHOCYTE 3 % (20.0-51.0); NEUTROPHILS 72 % (42.0-75.2); TOTAL CELLS COUNTED 100
[2016-10-31 10:47] LABS: MEAN CELL VOLUME 91 fl (80.0-100.0); MEAN CORPUSCULAR HGB CONC 34 g/dl (33.0-37.0); MEAN PLATELET VOLUME 11.3 fl (7.4-10.4); PLATELET COUNT 184 K/mm3 (130-400); RED BLOOD COUNT 3.58 M/mm3 (4.10-5.30)
[2016-10-31 11:01] LABS: HEMATOCRIT 32.5 % (37.0-47.0); MEAN CORPUSCULAR HEMOGLOBIN 31 pg (27.0-31.0)
[2016-10-31 12:15] LABS: BAND 15 % (0-10); LYMPHOCYTE 21 % (20.0-51.0); NEUTROPHILS 57 % (42.0-75.2); OVALOCYTES 1+; PLATELET ESTIMATE NORMAL (NORMAL); TEAR DROP CELLS 1+; TOTAL CELLS COUNTED 100
[2016-11-07 09:45] LABS: ADD PATHOLOGY DIFF REVIEW YES
[2016-11-07 09:47] LABS: PATHOLOGY DIFF REVIEW OK +
[2016-11-07 09:53] LABS: ADD PATHOLOGY DIFF REVIEW NO
[2016-11-07 09:57] VITALS: BP 108/62; PULSE 76; TEMP 98.5
[2016-11-07 09:57] LABS: MEAN CELL VOLUME 92 fl (80.0-100.0); MEAN CORPUSCULAR HGB CONC 33 g/dl (33.0-37.0); MEAN PLATELET VOLUME 10.6 fl (7.4-10.4); PLATELET COUNT 217 K/mm3 (130-400); RED BLOOD COUNT 3.35 M/mm3 (4.10-5.30); WHITE BLOOD COUNT 9.3 K/mm3 (4.8-10.8)
[2016-11-07 10:07] LABS: ADJUSTED CALCIUM 8.6 mg/dL (8.4-10.2); ALBUMIN 3.3 gm/dL (3.5-5.0); BILIRUBIN,TOTAL 0.5 mg/dL (0.0-1.0); CREATININE, serum 0.72 mg/dL (0.52-1.25); POTASSIUM 3.1 mmol/L (3.4-5.0); TOTAL PROTEIN 6.4 gm/dL (6.4-8.2)
[2016-11-07 10:11] LABS: HEMATOCRIT 30.7 % (37.0-47.0); MEAN CORPUSCULAR HEMOGLOBIN 30 pg (27.0-31.0)
[2016-11-07 10:37] LABS: BAND 17 % (0-10); EOSINOPHIL 1 % (0-4); LYMPHOCYTE 23 % (20.0-51.0); METAMYELOCYTE 1 % (0-0); NEUTROPHILS 53 % (42.0-75.2); PLATELET ESTIMATE NORMAL (NORMAL); TOTAL CELLS COUNTED 100
[2016-11-07 10:39] LABS: TOXIC GRANULATION PRESENT
[2016-11-14 10:30] VITALS: BP 83/55; PULSE 66; TEMP 98
[2016-11-14 11:03] LABS: ADD PATHOLOGY DIFF REVIEW NO
[2016-11-14 11:06] LABS: MEAN CELL VOLUME 92 fl (80.0-100.0); MEAN CORPUSCULAR HGB CONC 33 g/dl (33.0-37.0); MEAN PLATELET VOLUME 11.1 fl (7.4-10.4); PLATELET COUNT 172 K/mm3 (130-400); RED BLOOD COUNT 3.55 M/mm3 (4.10-5.30)
[2016-11-14 11:13] LABS: HEMATOCRIT 32.8 % (37.0-47.0); HEMOGLOBIN 10.8 g/dl (12.5-16.0); MEAN CORPUSCULAR HEMOGLOBIN 30 pg (27.0-31.0); WHITE BLOOD COUNT 36.1 K/mm3 (4.8-10.8)
[2016-11-14 11:44] LABS: BAND 21 % (0-10); LYMPHOCYTE 2 % (20.0-51.0); NEUTROPHILS 77 % (42.0-75.2); TOTAL CELLS COUNTED 100
[2016-11-14 11:47] LABS: PLATELET ESTIMATE NORMAL (NORMAL); TOXIC GRANULATION PRESENT
[2016-11-21 10:08] LABS: ADD PATHOLOGY DIFF REVIEW NO
[2016-11-21 10:13] LABS: MEAN CELL VOLUME 91 fl (80.0-100.0); MEAN CORPUSCULAR HGB CONC 33 g/dl (33.0-37.0); MEAN PLATELET VOLUME 10.4 fl (7.4-10.4); PLATELET COUNT 148 K/mm3 (130-400); RED BLOOD COUNT 3.27 M/mm3 (4.10-5.30); WHITE BLOOD COUNT 4.9 K/mm3 (4.8-10.8)
[2016-11-21 10:21] LABS: HEMATOCRIT 29.6 % (37.0-47.0); HEMOGLOBIN 9.8 g/dl (12.5-16.0); MEAN CORPUSCULAR HEMOGLOBIN 30 pg (27.0-31.0)
[2016-11-21 10:54] LABS: BAND 17 % (0-10); EOSINOPHIL 2 % (0-4); LYMPHOCYTE 27 % (20.0-51.0); NEUTROPHILS 49 % (42.0-75.2); TOTAL CELLS COUNTED 100
[2016-11-21 10:56] VITALS: BP 114/89; PULSE 81; TEMP 98.3
[2016-11-21 10:58] LABS: PLATELET ESTIMATE NORMAL (NORMAL); POIKILOCYTOSIS 1+; POLYCHROMASIA 1+
[2016-11-21 10:59] LABS: TEAR DROP CELLS 1+
[2016-11-28 10:48] VITALS: BP 108/68; PULSE 73; TEMP 98.2
[2016-11-28 10:54] LABS: ADD PATHOLOGY DIFF REVIEW NO
[2016-11-28 11:09] LABS: MEAN CELL VOLUME 92 fl (80.0-100.0); MEAN CORPUSCULAR HGB CONC 32 g/dl (33.0-37.0); MEAN PLATELET VOLUME 10.2 fl (7.4-10.4); PLATELET COUNT 214 K/mm3 (130-400); RED BLOOD COUNT 3.41 M/mm3 (4.10-5.30); WHITE BLOOD COUNT 8.3 K/mm3 (4.8-10.8)
[2016-11-28 11:13] LABS: HEMATOCRIT 31.5 % (37.0-47.0); HEMOGLOBIN 10.2 g/dl (12.5-16.0); MEAN CORPUSCULAR HEMOGLOBIN 30 pg (27.0-31.0)
[2016-11-28 11:20] LABS: ALBUMIN 3.9 gm/dL (3.5-5.0); BILIRUBIN,TOTAL 0.6 mg/dL (0.0-1.0); CALCIUM 8.9 mg/dL (8.4-10.2); CREATININE, serum 0.78 mg/dL (0.52-1.25); POTASSIUM 3.2 mmol/L (3.4-5.0)
[2016-11-28 13:09] LABS: ANISOCYTOSIS 2+; BAND 18 % (0-10); BASOPHIL 1 % (0-2); LYMPHOCYTE 24 % (20.0-51.0); METAMYELOCYTE 2 % (0-0); MYELOCYTE 2 % (0-0); NEUTROPHILS 50 % (42.0-75.2); PLATELET ESTIMATE NORMAL (NORMAL); TEAR DROP CELLS 1+; TOTAL CELLS COUNTED 100
[2016-12-05 10:35] VITALS: BP 92/62; PULSE 80; TEMP 98.3
[2016-12-05 10:36] LABS: ADD PATHOLOGY DIFF REVIEW NO
[2016-12-05 10:48] LABS: MEAN CELL VOLUME 92 fl (80.0-100.0); MEAN CORPUSCULAR HGB CONC 33 g/dl (33.0-37.0); MEAN PLATELET VOLUME 10.8 fl (7.4-10.4); PLATELET COUNT 160 K/mm3 (130-400); RED BLOOD COUNT 3.57 M/mm3 (4.10-5.30)
[2016-12-05 10:51] LABS: HEMATOCRIT 32.9 % (37.0-47.0); HEMOGLOBIN 10.7 g/dl (12.5-16.0); MEAN CORPUSCULAR HEMOGLOBIN 30 pg (27.0-31.0); WHITE BLOOD COUNT 34.9 K/mm3 (4.8-10.8)
[2016-12-05 11:13] LABS: BAND 12 % (0-10); LYMPHOCYTE 4 % (20.0-51.0); NEUTROPHILS 83 % (42.0-75.2)
[2016-12-05 11:14] LABS: BASOPHIL 1 % (0-2); OVALOCYTES 1+; PLATELET ESTIMATE NORMAL (NORMAL); TEAR DROP CELLS 1+
[2016-12-05 11:15] LABS: TOTAL CELLS COUNTED 300
[2016-12-12 10:33] LABS: MEAN CELL VOLUME 92 fl (80.0-100.0); MEAN CORPUSCULAR HGB CONC 33 g/dl (33.0-37.0); MEAN PLATELET VOLUME 11.3 fl (7.4-10.4); PLATELET COUNT 177 K/mm3 (130-400); RED BLOOD COUNT 3.46 M/mm3 (4.10-5.30); WHITE BLOOD COUNT 9.1 K/mm3 (4.8-10.8)
[2016-12-12 10:36] LABS: HEMATOCRIT 31.7 % (37.0-47.0); HEMOGLOBIN 10.4 g/dl (12.5-16.0); MEAN CORPUSCULAR HEMOGLOBIN 30 pg (27.0-31.0)
[2016-12-12 10:49] VITALS: BP 107/59; PULSE 86; TEMP 99
[2016-12-12 11:16] LABS: BAND 34 % (0-10); EOSINOPHIL 2 % (0-4); LYMPHOCYTE 17 % (20.0-51.0); NEUTROPHILS 40 % (42.0-75.2); TOTAL CELLS COUNTED 100
[2016-12-12 11:20] LABS: PLATELET ESTIMATE NORMAL (NORMAL)
[2016-12-12 11:22] LABS: SPHEROCYTE 2+; TEAR DROP CELLS 2+
[2016-12-12 11:25] LABS: ANISOCYTOSIS 1+; POLYCHROMASIA 1+; TOXIC GRANULATION PRESENT
[2016-12-12 11:26] LABS: DOHLE BODIES PRESENT
[2016-12-12 11:32] LABS: ADD PATHOLOGY DIFF REVIEW YES
[2016-12-15 08:58] LABS: PATHOLOGY DIFF REVIEW OK
[2016-12-19 10:04] LABS: ADD PATHOLOGY DIFF REVIEW NO
[2016-12-19 10:12] VITALS: BP 111/64; PULSE 75; TEMP 98.4
[2016-12-19 10:14] LABS: MEAN CELL VOLUME 93 fl (80.0-100.0); MEAN CORPUSCULAR HGB CONC 33 g/dl (33.0-37.0); MEAN PLATELET VOLUME 10.4 fl (7.4-10.4); PLATELET COUNT 188 K/mm3 (130-400); RED BLOOD COUNT 3.32 M/mm3 (4.10-5.30); WHITE BLOOD COUNT 7.3 K/mm3 (4.8-10.8)
[2016-12-19 10:17] LABS: ADJUSTED CALCIUM 8.8 mg/dL (8.4-10.2); ALBUMIN 3.7 gm/dL (3.5-5.0); BILIRUBIN,TOTAL 0.6 mg/dL (0.0-1.0); CALCIUM 8.6 mg/dL (8.4-10.2); CREATININE, serum 0.82 mg/dL (0.52-1.25); POTASSIUM 3.4 mmol/L (3.4-5.0); TOTAL PROTEIN 6.5 gm/dL (6.4-8.2)
[2016-12-19 10:26] LABS: HEMOGLOBIN 10.1 g/dl (12.5-16.0); MEAN CORPUSCULAR HEMOGLOBIN 30 pg (27.0-31.0)
[2016-12-19 11:03] LABS: BAND 16 % (0-10); BASOPHIL 1 % (0-2); EOSINOPHIL 1 % (0-4); LYMPHOCYTE 12 % (20.0-51.0); METAMYELOCYTE 1 % (0-0); MYELOCYTE 6 % (0-0); NEUTROPHILS 60 % (42.0-75.2); TOTAL CELLS COUNTED 100
[2016-12-19 11:04] LABS: OVALOCYTES 1+; PLATELET ESTIMATE NORMAL (NORMAL); TEAR DROP CELLS 1+
[2016-12-26 10:05] LABS: ADD PATHOLOGY DIFF REVIEW NO
[2016-12-26 10:08] VITALS: BP 118/73; PULSE 89; TEMP 98.1
[2016-12-26 10:08] LABS: MEAN CELL VOLUME 92 fl (80.0-100.0); MEAN CORPUSCULAR HGB CONC 33 g/dl (33.0-37.0); MEAN PLATELET VOLUME 10.5 fl (7.4-10.4); PLATELET COUNT 212 K/mm3 (130-400); RED BLOOD COUNT 3.51 M/mm3 (4.10-5.30)
[2016-12-26 10:11] LABS: HEMATOCRIT 32.3 % (37.0-47.0); HEMOGLOBIN 10.5 g/dl (12.5-16.0); MEAN CORPUSCULAR HEMOGLOBIN 30 pg (27.0-31.0)
[2016-12-26 12:01] LABS: BASOPHIL 1 % (0-2); EOSINOPHIL 4 % (0-4); LYMPHOCYTE 8 % (20.0-51.0); NEUTROPHILS 77 % (42.0-75.2); TOTAL CELLS COUNTED 100
[2016-12-26 12:02] LABS: PLATELET ESTIMATE NORMAL (NORMAL)
[2017-01-02 10:49] VITALS: BP 101/61; PULSE 72; TEMP 98.6
[2017-01-02 10:52] LABS: ADD PATHOLOGY DIFF REVIEW NO
[2017-01-02 10:55] LABS: MEAN CELL VOLUME 92 fl (80.0-100.0); MEAN CORPUSCULAR HGB CONC 33 g/dl (33.0-37.0); MEAN PLATELET VOLUME 11.2 fl (7.4-10.4); PLATELET COUNT 159 K/mm3 (130-400); RED BLOOD COUNT 3.41 M/mm3 (4.10-5.30)
[2017-01-02 11:02] LABS: HEMATOCRIT 31.4 % (37.0-47.0); HEMOGLOBIN 10.3 g/dl (12.5-16.0); MEAN CORPUSCULAR HEMOGLOBIN 30 pg (27.0-31.0); WHITE BLOOD COUNT 20.5 K/mm3 (4.8-10.8)
[2017-01-02 11:28] LABS: BAND 23 % (0-10); BASOPHIL 1 % (0-2); LYMPHOCYTE 5 % (20.0-51.0); NEUTROPHILS 71 % (42.0-75.2); OVALOCYTES 1+; TOTAL CELLS COUNTED 100
[2017-01-02 11:29] LABS: ANISOCYTOSIS 1+
[2017-01-09 10:22] VITALS: BP 117/71; PULSE 79; TEMP 98.6
[2017-01-09 10:27] LABS: ADD PATHOLOGY DIFF REVIEW NO
[2017-01-09 10:34] LABS: MEAN CELL VOLUME 91 fl (80.0-100.0); MEAN CORPUSCULAR HGB CONC 33 g/dl (33.0-37.0); MEAN PLATELET VOLUME 11.5 fl (7.4-10.4); PLATELET COUNT 130 K/mm3 (130-400); RED BLOOD COUNT 3.27 M/mm3 (4.10-5.30); WHITE BLOOD COUNT 5.4 K/mm3 (4.8-10.8)
[2017-01-09 10:47] LABS: HEMATOCRIT 29.6 % (37.0-47.0); HEMOGLOBIN 9.7 g/dl (12.5-16.0); MEAN CORPUSCULAR HEMOGLOBIN 30 pg (27.0-31.0)
[2017-01-09 11:42] LABS: BAND 18 % (0-10); BASOPHIL 2 % (0-2); EOSINOPHIL 6 % (0-4); LYMPHOCYTE 46 % (20.0-51.0); NEUTROPHILS 20 % (42.0-75.2); PLATELET ESTIMATE DECREASED (NORMAL); TOTAL CELLS COUNTED 100; TOXIC GRANULATION PRESENT
[2017-01-09 11:43] LABS: DOHLE BODIES PRESENT
[2017-01-09 11:45] LABS: ANISOCYTOSIS 1+; POLYCHROMASIA 1+; SPHEROCYTE 1+
[~2017-01-14] VITALS: Ht 165.1 cm; Wt 73.5 kg
[2017-01-14 09:15] VITALS: BP 112/76; PULSE 87; TEMP 97.6
[2017-01-14 10:12] LABS: ADD PATHOLOGY DIFF REVIEW NO
[2017-01-14 10:15] LABS: MEAN CELL VOLUME 91 fl (80.0-100.0); MEAN CORPUSCULAR HGB CONC 32 g/dl (33.0-37.0); MEAN PLATELET VOLUME 10.6 fl (7.4-10.4); PLATELET COUNT 180 K/mm3 (130-400); RED BLOOD COUNT 3.53 M/mm3 (4.10-5.30); WHITE BLOOD COUNT 8.1 K/mm3 (4.8-10.8)
[2017-01-14 10:21] LABS: HEMATOCRIT 32.2 % (37.0-47.0); HEMOGLOBIN 10.4 g/dl (12.5-16.0); MEAN CORPUSCULAR HEMOGLOBIN 29 pg (27.0-31.0)
[2017-01-14 10:24] LABS: ADJUSTED CALCIUM 8.9 mg/dL (8.4-10.2); ALBUMIN 3.9 gm/dL (3.5-5.0); BILIRUBIN,TOTAL 0.6 mg/dL (0.0-1.0); CALCIUM 8.8 mg/dL (8.4-10.2); CREATININE, serum 0.7 mg/dL (0.52-1.25); POTASSIUM 3.3 mmol/L (3.4-5.0)
[2017-01-14 10:45] LABS: BAND 7 % (0-10); BASOPHIL 1 % (0-2); EOSINOPHIL 2 % (0-4); LYMPHOCYTE 24 % (20.0-51.0); METAMYELOCYTE 1 % (0-0); MYELOCYTE 2 % (0-0); NEUTROPHILS 63 % (42.0-75.2); NUCLEATED RED BLOOD CELL 1 (0-6); TOTAL CELLS COUNTED 100
[2017-01-14 10:46] LABS: PLATELET ESTIMATE NORMAL (NORMAL)
== END 2017-01-22 | disposition still patient (30) ==
LOC: EUO
PROVIDERS: Internal Medicine Medical Oncology
DX: C25.0 Malignant neoplasm of head of pancreas (principal)
CPT/HCPCS: J1644

== ENCOUNTER 2017-04-16 10:00 | Outpatient (RCR) | payer MEDICARE ==
[2017-01-23 10:00] VITALS: BP 110/70; PULSE 88; TEMP 98
[2017-01-23 10:57] LABS: ADD PATHOLOGY DIFF REVIEW NO
[2017-01-23 11:06] LABS: MEAN CELL VOLUME 92 fl (80.0-100.0); MEAN CORPUSCULAR HGB CONC 33 g/dl (33.0-37.0); MEAN PLATELET VOLUME 10.9 fl (7.4-10.4); PLATELET COUNT 237 K/mm3 (130-400); RED BLOOD COUNT 3.48 M/mm3 (4.10-5.30); WHITE BLOOD COUNT 7.6 K/mm3 (4.8-10.8)
[2017-01-23 11:10] LABS: HEMOGLOBIN 10.4 g/dl (12.5-16.0); MEAN CORPUSCULAR HEMOGLOBIN 30 pg (27.0-31.0)
[2017-01-23 11:53] LABS: BAND 8 % (0-10); BASOPHIL 2 % (0-2); EOSINOPHIL 1 % (0-4); LYMPHOCYTE 15 % (20.0-51.0); METAMYELOCYTE 3 % (0-0); NEUTROPHILS 69 % (42.0-75.2); PLATELET ESTIMATE NORMAL (NORMAL); TOTAL CELLS COUNTED 100
[2017-01-30 10:47] VITALS: BP 99/64; PULSE 80; TEMP 98
[2017-01-30 10:48] LABS: ADD PATHOLOGY DIFF REVIEW NO
[2017-01-30 10:54] LABS: MEAN CELL VOLUME 91 fl (80.0-100.0); MEAN CORPUSCULAR HGB CONC 33 g/dl (33.0-37.0); MEAN PLATELET VOLUME 11.3 fl (7.4-10.4); PLATELET COUNT 217 K/mm3 (130-400); RED BLOOD COUNT 3.85 M/mm3 (4.10-5.30)
[2017-01-30 11:09] LABS: HEMATOCRIT 34.9 % (37.0-47.0); HEMOGLOBIN 11.5 g/dl (12.5-16.0); MEAN CORPUSCULAR HEMOGLOBIN 30 pg (27.0-31.0)
[2017-01-30 11:34] LABS: BAND 18 % (0-10); LYMPHOCYTE 7 % (20.0-51.0); NEUTROPHILS 74 % (42.0-75.2); TOTAL CELLS COUNTED 100
[2017-01-30 11:35] LABS: HYPOCHROMIA 1+; PLATELET ESTIMATE NORMAL (NORMAL)
[2017-01-30 11:37] LABS: ANISOCYTOSIS 1+
[2017-01-30 11:40] LABS: TEAR DROP CELLS 1+
[2017-02-06 10:38] VITALS: BP 114/50; PULSE 84; TEMP 98
[2017-02-06 10:59] LABS: MEAN CELL VOLUME 91 fl (80.0-100.0); MEAN CORPUSCULAR HGB CONC 33 g/dl (33.0-37.0); MEAN PLATELET VOLUME 11.6 fl (7.4-10.4); PLATELET COUNT 123 K/mm3 (130-400); RED BLOOD COUNT 3.46 M/mm3 (4.10-5.30); WHITE BLOOD COUNT 5.1 K/mm3 (4.8-10.8)
[2017-02-06 11:05] LABS: ADJUSTED CALCIUM 8.8 mg/dL (8.4-10.2); ALBUMIN 4.1 gm/dL (3.5-5.0); BILIRUBIN,TOTAL 0.5 mg/dL (0.0-1.0); CALCIUM 8.9 mg/dL (8.4-10.2); CREATININE, serum 0.72 mg/dL (0.52-1.25); POTASSIUM 3.1 mmol/L (3.4-5.0); TOTAL PROTEIN 7.1 gm/dL (6.4-8.2)
[2017-02-06 11:31] LABS: HEMATOCRIT 31.5 % (37.0-47.0); HEMOGLOBIN 10.3 g/dl (12.5-16.0); MEAN CORPUSCULAR HEMOGLOBIN 30 pg (27.0-31.0)
[2017-02-06 11:44] LABS: BAND 19 % (0-10); BASOPHIL 1 % (0-2); EOSINOPHIL 2 % (0-4); LYMPHOCYTE 41 % (20.0-51.0); NEUTROPHILS 25 % (42.0-75.2); TOTAL CELLS COUNTED 100
[2017-02-06 11:46] LABS: ANISOCYTOSIS 1+; PLATELET ESTIMATE DECREASED (NORMAL); POLYCHROMASIA 1+; TARGET CELLS 1+; TEAR DROP CELLS 1+
[2017-02-06 11:47] LABS: TOXIC GRANULATION PRESENT
[2017-02-06 11:48] LABS: ADD PATHOLOGY DIFF REVIEW YES
[2017-02-13 10:37] LABS: ADD PATHOLOGY DIFF REVIEW NO
[2017-02-13 10:40] LABS: MEAN CELL VOLUME 90 fl (80.0-100.0); MEAN CORPUSCULAR HGB CONC 33 g/dl (33.0-37.0); MEAN PLATELET VOLUME 10.8 fl (7.4-10.4); PLATELET COUNT 151 K/mm3 (130-400); RED BLOOD COUNT 3.55 M/mm3 (4.10-5.30); WHITE BLOOD COUNT 8.8 K/mm3 (4.8-10.8)
[2017-02-13 10:41] LABS: HEMOGLOBIN 10.5 g/dl (12.5-16.0); MEAN CORPUSCULAR HEMOGLOBIN 30 pg (27.0-31.0)
[2017-02-13 11:19] LABS: ANISOCYTOSIS 2+; BAND 22 % (0-10); BASOPHIL 1 % (0-2); LYMPHOCYTE 19 % (20.0-51.0); METAMYELOCYTE 3 % (0-0); MYELOCYTE 2 % (0-0); NEUTROPHILS 51 % (42.0-75.2); PLATELET ESTIMATE NORMAL (NORMAL); TOTAL CELLS COUNTED 100
[2017-02-20 10:42] LABS: ADD PATHOLOGY DIFF REVIEW NO
[2017-02-20 10:43] VITALS: BP 102/71; PULSE 70; TEMP 97.9
[2017-02-20 10:45] LABS: MEAN CELL VOLUME 91 fl (80.0-100.0); MEAN CORPUSCULAR HGB CONC 34 g/dl (33.0-37.0); MEAN PLATELET VOLUME 10.7 fl (7.4-10.4); PLATELET COUNT 153 K/mm3 (130-400); RED BLOOD COUNT 3.91 M/mm3 (4.10-5.30)
[2017-02-20 10:47] LABS: HEMATOCRIT 35.5 % (37.0-47.0); HEMOGLOBIN 11.9 g/dl (12.5-16.0); MEAN CORPUSCULAR HEMOGLOBIN 30 pg (27.0-31.0); WHITE BLOOD COUNT 33.2 K/mm3 (4.8-10.8)
[2017-02-20 12:02] LABS: ANISOCYTOSIS 1+; BAND 19 % (0-10); LYMPHOCYTE 2 % (20.0-51.0); NEUTROPHILS 79 % (42.0-75.2); OVALOCYTES 1+; PLATELET ESTIMATE NORMAL (NORMAL); TOTAL CELLS COUNTED 100
[2017-02-27 10:45] VITALS: BP 112/69; PULSE 81; TEMP 98.6
[2017-02-27 10:50] LABS: ADD PATHOLOGY DIFF REVIEW NO
[2017-02-27 11:02] LABS: ADJUSTED CALCIUM 8.7 mg/dL (8.4-10.2); ALBUMIN 4.1 gm/dL (3.5-5.0); BILIRUBIN,TOTAL 0.5 mg/dL (0.0-1.0); CALCIUM 8.8 mg/dL (8.4-10.2); CREATININE, serum 0.71 mg/dL (0.52-1.25); TOTAL PROTEIN 7.2 gm/dL (6.4-8.2)
[2017-02-27 11:05] LABS: MEAN CELL VOLUME 90 fl (80.0-100.0); MEAN CORPUSCULAR HGB CONC 33 g/dl (33.0-37.0); MEAN PLATELET VOLUME 11.6 fl (7.4-10.4); PLATELET COUNT 139 K/mm3 (130-400); RED BLOOD COUNT 3.63 M/mm3 (4.10-5.30); WHITE BLOOD COUNT 4.2 K/mm3 (4.8-10.8)
[2017-02-27 11:06] LABS: HEMATOCRIT 32.5 % (37.0-47.0); HEMOGLOBIN 10.7 g/dl (12.5-16.0); MEAN CORPUSCULAR HEMOGLOBIN 29 pg (27.0-31.0)
[2017-02-27 11:50] LABS: BAND 18 % (0-10); LYMPHOCYTE 48 % (20.0-51.0); METAMYELOCYTE 1 % (0-0); NEUTROPHILS 21 % (42.0-75.2); TOTAL CELLS COUNTED 100
[2017-02-27 11:52] LABS: ANISOCYTOSIS 1+; OVALOCYTES 1+; PLATELET ESTIMATE DECREASED (NORMAL); POIKILOCYTOSIS 1+
[2017-03-06 10:00] VITALS: BP 107/62; PULSE 81; TEMP 98
[2017-03-06 12:03] LABS: ADD PATHOLOGY DIFF REVIEW NO
[2017-03-06 12:06] LABS: MEAN CELL VOLUME 91 fl (80.0-100.0); MEAN CORPUSCULAR HGB CONC 33 g/dl (33.0-37.0); MEAN PLATELET VOLUME 10.3 fl (7.4-10.4); PLATELET COUNT 200 K/mm3 (130-400); RED BLOOD COUNT 3.61 M/mm3 (4.10-5.30); WHITE BLOOD COUNT 11.5 K/mm3 (4.8-10.8)
[2017-03-06 12:10] LABS: HEMATOCRIT 32.9 % (37.0-47.0); HEMOGLOBIN 10.9 g/dl (12.5-16.0); MEAN CORPUSCULAR HEMOGLOBIN 30 pg (27.0-31.0)
[2017-03-06 12:48] LABS: BAND 4 % (0-10); BASOPHIL 2 % (0-2); LYMPHOCYTE 19 % (20.0-51.0); NEUTROPHILS 68 % (42.0-75.2); TOTAL CELLS COUNTED 100
[2017-03-06 12:50] LABS: ANISOCYTOSIS 2+; PLATELET ESTIMATE NORMAL (NORMAL)
[2017-03-13 10:55] LABS: ADD PATHOLOGY DIFF REVIEW NO
[2017-03-13 10:59] LABS: MEAN CELL VOLUME 91 fl (80.0-100.0); MEAN CORPUSCULAR HGB CONC 33 g/dl (33.0-37.0); MEAN PLATELET VOLUME 11.2 fl (7.4-10.4); PLATELET COUNT 177 K/mm3 (130-400); RED BLOOD COUNT 3.98 M/mm3 (4.10-5.30)
[2017-03-13 11:06] LABS: HEMOGLOBIN 11.9 g/dl (12.5-16.0); MEAN CORPUSCULAR HEMOGLOBIN 30 pg (27.0-31.0); WHITE BLOOD COUNT 40.6 K/mm3 (4.8-10.8)
[2017-03-13 11:31] VITALS: BP 97/58; PULSE 77; TEMP 97.9
[2017-03-13 12:11] LABS: BAND 11 % (0-10); LYMPHOCYTE 7 % (20.0-51.0); NEUTROPHILS 81 % (42.0-75.2); PLATELET ESTIMATE NORMAL (NORMAL); TOTAL CELLS COUNTED 100
[2017-03-20 10:39] VITALS: BP 105/70; PULSE 82; TEMP 98
[2017-03-20 10:54] LABS: ADD PATHOLOGY DIFF REVIEW NO
[2017-03-20 10:58] LABS: MEAN CELL VOLUME 90 fl (80.0-100.0); MEAN CORPUSCULAR HGB CONC 33 g/dl (33.0-37.0); PLATELET COUNT 152 K/mm3 (130-400); RED BLOOD COUNT 3.52 M/mm3 (4.10-5.30); WHITE BLOOD COUNT 6.5 K/mm3 (4.8-10.8)
[2017-03-20 10:59] LABS: HEMATOCRIT 31.8 % (37.0-47.0); HEMOGLOBIN 10.6 g/dl (12.5-16.0); MEAN CORPUSCULAR HEMOGLOBIN 30 pg (27.0-31.0)
[2017-03-20 11:55] LABS: ANISOCYTOSIS 3+; BAND 41 % (0-10); BASOPHIL 2 % (0-2); LYMPHOCYTE 32 % (20.0-51.0); MYELOCYTE 2 % (0-0); NEUTROPHILS 22 % (42.0-75.2); PLATELET ESTIMATE NORMAL (NORMAL); TOTAL CELLS COUNTED 100
[2017-03-27 12:24] LABS: ADD PATHOLOGY DIFF REVIEW NO
[2017-03-27 12:27] LABS: MEAN CELL VOLUME 92 fl (80.0-100.0); MEAN CORPUSCULAR HGB CONC 32 g/dl (33.0-37.0); MEAN PLATELET VOLUME 9.3 fl (7.4-10.4); PLATELET COUNT 187 K/mm3 (130-400); RED BLOOD COUNT 3.09 M/mm3 (4.10-5.30); WHITE BLOOD COUNT 8.5 K/mm3 (4.8-10.8)
[2017-03-27 12:30] LABS: HEMATOCRIT 28.4 % (37.0-47.0); HEMOGLOBIN 9.2 g/dl (12.5-16.0); MEAN CORPUSCULAR HEMOGLOBIN 30 pg (27.0-31.0)
[2017-03-27 12:36] VITALS: BP 114/70; PULSE 73; TEMP 98.1
[2017-03-27 12:40] LABS: BAND 9 % (0-10); LYMPHOCYTE 23 % (20.0-51.0); NEUTROPHILS 66 % (42.0-75.2); PLATELET ESTIMATE NORMAL (NORMAL); TOTAL CELLS COUNTED 100
[2017-03-27 12:41] LABS: ADJUSTED CALCIUM 8.5 mg/dL (8.4-10.2); ALBUMIN 3.7 gm/dL (3.5-5.0); BILIRUBIN,TOTAL 0.6 mg/dL (0.0-1.0); CALCIUM 8.3 mg/dL (8.4-10.2); CREATININE, serum 0.66 mg/dL (0.52-1.25); POTASSIUM 3.2 mmol/L (3.4-5.0); TOTAL PROTEIN 6.4 gm/dL (6.4-8.2)
[2017-04-03 10:40] LABS: ADD PATHOLOGY DIFF REVIEW NO
[2017-04-03 10:45] VITALS: BP 100/60; PULSE 79; TEMP 98.4
[2017-04-03 10:47] LABS: MEAN CELL VOLUME 91 fl (80.0-100.0); MEAN CORPUSCULAR HGB CONC 34 g/dl (33.0-37.0); MEAN PLATELET VOLUME 10.9 fl (7.4-10.4); PLATELET COUNT 180 K/mm3 (130-400); RED BLOOD COUNT 3.81 M/mm3 (4.10-5.30)
[2017-04-03 10:49] LABS: HEMATOCRIT 34.7 % (37.0-47.0); HEMOGLOBIN 11.7 g/dl (12.5-16.0); MEAN CORPUSCULAR HEMOGLOBIN 31 pg (27.0-31.0)
[2017-04-03 11:15] LABS: ANISOCYTOSIS 1+; BAND 15 % (0-10); LYMPHOCYTE 5 % (20.0-51.0); NEUTROPHILS 80 % (42.0-75.2); PLATELET ESTIMATE NORMAL (NORMAL)
[2017-04-03 11:16] LABS: TOTAL CELLS COUNTED 200
[2017-04-10 11:00] VITALS: BP 108/55; PULSE 80; TEMP 97.8
[2017-04-10 11:05] LABS: ADD PATHOLOGY DIFF REVIEW NO
[2017-04-10 11:12] LABS: MEAN CELL VOLUME 91 fl (80.0-100.0); MEAN CORPUSCULAR HGB CONC 33 g/dl (33.0-37.0); MEAN PLATELET VOLUME 11.3 fl (7.4-10.4); PLATELET COUNT 132 K/mm3 (130-400); RED BLOOD COUNT 3.35 M/mm3 (4.10-5.30); WHITE BLOOD COUNT 6.8 K/mm3 (4.8-10.8)
[2017-04-10 11:13] LABS: HEMATOCRIT 30.4 % (37.0-47.0); MEAN CORPUSCULAR HEMOGLOBIN 30 pg (27.0-31.0)
[2017-04-10 11:29] LABS: ADJUSTED CALCIUM 8.8 mg/dL (8.4-10.2); ALBUMIN 3.9 gm/dL (3.5-5.0); BILIRUBIN,TOTAL 0.5 mg/dL (0.0-1.0); CALCIUM 8.7 mg/dL (8.4-10.2); CREATININE, serum 0.88 mg/dL (0.52-1.25); TOTAL PROTEIN 6.6 gm/dL (6.4-8.2)
[2017-04-10 11:31] LABS: BAND 13 % (0-10); LYMPHOCYTE 44 % (20.0-51.0); METAMYELOCYTE 1 % (0-0); NEUTROPHILS 34 % (42.0-75.2); PLATELET ESTIMATE NORMAL (NORMAL); TOTAL CELLS COUNTED 100
[2017-04-10 11:33] LABS: ANISOCYTOSIS 1+; HYPOCHROMIA 1+
[~2017-04-16] VITALS: Ht 165.1 cm; Wt 69.0 kg
[2017-04-16 10:57] LABS: ADD PATHOLOGY DIFF REVIEW NO
[2017-04-16 11:02] VITALS: BP 113/65; PULSE 85; TEMP 98.1
[2017-04-16 11:15] LABS: HEMATOCRIT 32.8 % (37.0-47.0); HEMOGLOBIN 10.7 g/dl (12.5-16.0); MEAN CELL VOLUME 91 fl (80.0-100.0); MEAN CORPUSCULAR HEMOGLOBIN 30 pg (27.0-31.0); MEAN CORPUSCULAR HGB CONC 33 g/dl (33.0-37.0); MEAN PLATELET VOLUME 10.2 fl (7.4-10.4); PLATELET COUNT 193 K/mm3 (130-400); RED BLOOD COUNT 3.59 M/mm3 (4.10-5.30); WHITE BLOOD COUNT 10.9 K/mm3 (4.8-10.8)
[2017-04-16 11:39] LABS: ANISOCYTOSIS 2+; BAND 15 % (0-10); BASOPHIL 1 % (0-2); EOSINOPHIL 2 % (0-4); LYMPHOCYTE 15 % (20.0-51.0); NEUTROPHILS 64 % (42.0-75.2); PLATELET ESTIMATE NORMAL (NORMAL); TOTAL CELLS COUNTED 100
[2017-04-16 11:40] LABS: OVALOCYTES 1+; TEAR DROP CELLS 1+
== END 2017-04-23 | disposition home or self-care (01) ==
LOC: EUO
PROVIDERS: Internal Medicine Medical Oncology
DX: C25.0 Malignant neoplasm of head of pancreas (principal)
CPT/HCPCS: J1644

== ENCOUNTER 2017-05-15 10:00 | Outpatient (RCR) | payer MEDICARE ==
[2017-04-24 11:10] VITALS: BP 101/60; PULSE 80; TEMP 98.3
[2017-04-24 11:25] LABS: MEAN CELL VOLUME 92 fl (80.0-100.0); MEAN CORPUSCULAR HGB CONC 33 g/dl (33.0-37.0); MEAN PLATELET VOLUME 10.5 fl (7.4-10.4); PLATELET COUNT 159 K/mm3 (130-400); RED BLOOD COUNT 3.92 M/mm3 (4.10-5.30); REDCELL DISTRIBUTION WIDTH-CV 20.6 % (11.5-14.5)
[2017-04-24 11:29] LABS: HEMATOCRIT 35.9 % (37.0-47.0); HEMOGLOBIN 11.9 g/dl (12.5-16.0); MEAN CORPUSCULAR HEMOGLOBIN 30 pg (27.0-31.0)
[2017-04-24 12:22] LABS: BAND 13 % (0-10); LYMPHOCYTE 4 % (20.0-51.0); NEUTROPHILS 83 % (42.0-75.2); PLATELET ESTIMATE NORMAL (NORMAL)
[2017-04-24 12:23] LABS: ANISOCYTOSIS 2+; HYPOCHROMIA 1+
[2017-05-01 10:48] VITALS: BP 100/67; PULSE 84; TEMP 97.6
[2017-05-01 11:00] LABS: MEAN CELL VOLUME 90 fl (80.0-100.0); MEAN CORPUSCULAR HGB CONC 33 g/dl (33.0-37.0); MEAN PLATELET VOLUME 10.5 fl (7.4-10.4); PLATELET COUNT 121 K/mm3 (130-400); RED BLOOD COUNT 3.52 M/mm3 (4.10-5.30); REDCELL DISTRIBUTION WIDTH-CV 19.4 % (11.5-14.5)
[2017-05-01 11:14] LABS: HEMATOCRIT 31.8 % (37.0-47.0); HEMOGLOBIN 10.5 g/dl (12.5-16.0); MEAN CORPUSCULAR HEMOGLOBIN 30 pg (27.0-31.0)
[2017-05-01 11:16] LABS: ALBUMIN 4.1 gm/dL (3.5-5.0); BILIRUBIN,TOTAL 0.5 mg/dL (0.0-1.0); CALCIUM 9.2 mg/dL (8.4-10.2); CREATININE, serum 0.98 mg/dL (0.52-1.25); POTASSIUM 3.3 mmol/L (3.4-5.0); TOTAL PROTEIN 6.9 gm/dL (6.4-8.2)
[2017-05-01 11:33] LABS: BAND 10 % (0-10); BASOPHIL 2 % (0-2); LYMPHOCYTE 50 % (20.0-51.0); METAMYELOCYTE 2 % (0-0); NEUTROPHILS 25 % (42.0-75.2)
[2017-05-01 11:34] LABS: TOXIC GRANULATION PRESENT
[2017-05-01 11:35] LABS: ANISOCYTOSIS 2+; POLYCHROMASIA 1+
[2017-05-01 11:36] LABS: PLATELET ESTIMATE DECREASED (NORMAL)
[2017-05-08 12:04] VITALS: BP 109/70; PULSE 72; TEMP 98.2
[2017-05-08 12:25] LABS: MEAN CELL VOLUME 92 fl (80.0-100.0); MEAN CORPUSCULAR HGB CONC 33 g/dl (33.0-37.0); PLATELET COUNT 205 K/mm3 (130-400); RED BLOOD COUNT 3.52 M/mm3 (4.10-5.30); REDCELL DISTRIBUTION WIDTH-CV 20.2 % (11.5-14.5)
[2017-05-08 12:26] LABS: HEMATOCRIT 32.5 % (37.0-47.0); HEMOGLOBIN 10.7 g/dl (12.5-16.0); MEAN CORPUSCULAR HEMOGLOBIN 30 pg (27.0-31.0)
[2017-05-08 12:42] LABS: BAND 20 % (0-10); EOSINOPHIL 1 % (0-4); LYMPHOCYTE 16 % (20.0-51.0); NEUTROPHILS 59 % (42.0-75.2); PLATELET ESTIMATE NORMAL (NORMAL)
[2017-05-08 12:43] LABS: ANISOCYTOSIS 1+
[2017-05-08 12:44] LABS: POIKILOCYTOSIS 1+; STOMATOCYTE 1+
[~2017-05-15] VITALS: Ht 165.1 cm; Wt 74.5 kg
[2017-05-15 10:11] VITALS: BP 106/68; PULSE 78
[2017-05-15 10:25] LABS: MEAN CELL VOLUME 93 fl (80.0-100.0); MEAN CORPUSCULAR HGB CONC 33 g/dl (33.0-37.0); MEAN PLATELET VOLUME 10.5 fl (7.4-10.4); PLATELET COUNT 213 K/mm3 (130-400); RED BLOOD COUNT 3.82 M/mm3 (4.10-5.30)
[2017-05-15 10:31] LABS: HEMATOCRIT 35.5 % (37.0-47.0); HEMOGLOBIN 11.7 g/dl (12.5-16.0); MEAN CORPUSCULAR HEMOGLOBIN 31 pg (27.0-31.0)
[2017-05-15 11:18] LABS: ANISOCYTOSIS 3+; BAND 31 % (0-10); LYMPHOCYTE 3 % (20.0-51.0); NEUTROPHILS 66 % (42.0-75.2); PLATELET ESTIMATE NORMAL (NORMAL)
== END 2017-05-15 10:45 | disposition home or self-care (01) ==
LOC: EUO 10:00
PROVIDERS: Internal Medicine; Internal Medicine Medical Oncology
DX: C25.0 Malignant neoplasm of head of pancreas (principal)
CPT/HCPCS: J1644

== ENCOUNTER 2017-07-19 12:54 | Emergency (ER) | payer MEDICARE ==
[~2017-07-19] VITALS: Ht 167.6 cm; Wt 72.7 kg
[~2017-07-19 12:54] MED LIST changes: +COMPAZINE 5MG TA5 MG PO
[2017-07-19 12:58] VITALS: BP 117/73; PULSE 80; TEMP 98.9
== END 2017-07-19 13:57 | disposition home or self-care (01) ==
LOC: COL.ER 12:54
DX: M79.89 Other specified soft tissue disorders (principal); Z90.710 Acquired absence of both cervix and uterus; Z98.890 Other specified postprocedural states; Z86.718 Personal history of other venous thrombosis and embolism; Z79.01 Long term (current) use of anticoagulants

== ENCOUNTER 2017-08-14 10:00 | Outpatient (RCR) | payer MEDICARE ==
[2017-05-22 10:19] LABS: MEAN CELL VOLUME 91 fl (80.0-100.0); MEAN CORPUSCULAR HGB CONC 33 g/dl (33.0-37.0); MEAN PLATELET VOLUME 10.6 fl (7.4-10.4); PLATELET COUNT 140 K/mm3 (130-400); RED BLOOD COUNT 3.69 M/mm3 (4.10-5.30); REDCELL DISTRIBUTION WIDTH-CV 18.9 % (11.5-14.5)
[2017-05-22 10:20] LABS: HEMATOCRIT 33.7 % (37.0-47.0); HEMOGLOBIN 11.2 g/dl (12.5-16.0); MEAN CORPUSCULAR HEMOGLOBIN 30 pg (27.0-31.0)
[2017-05-22 10:29] VITALS: BP 116/71; PULSE 87; TEMP 97.9
[2017-05-22 10:38] LABS: ALBUMIN 4.3 gm/dL (3.5-5.0); BILIRUBIN,TOTAL 0.4 mg/dL (0.0-1.0); CALCIUM 9.1 mg/dL (8.4-10.2); CREATININE, serum 0.8 mg/dL (0.52-1.25); POTASSIUM 3.6 mmol/L (3.4-5.0); TOTAL PROTEIN 7.2 gm/dL (6.4-8.2)
[2017-05-22 10:52] LABS: BAND 11 % (0-10); BASOPHIL 1 % (0-2); LYMPHOCYTE 17 % (20.0-51.0); NEUTROPHILS 66 % (42.0-75.2)
[2017-05-22 10:53] LABS: ANISOCYTOSIS 1+; HYPOCHROMIA 1+; PLATELET ESTIMATE NORMAL (NORMAL)
[2017-05-29 11:42] VITALS: BP 106/68; PULSE 81; TEMP 98
[2017-05-29 12:11] LABS: HEMATOCRIT 33.8 % (37.0-47.0); HEMOGLOBIN 11.1 g/dl (12.5-16.0); MEAN CELL VOLUME 94 fl (80.0-100.0); MEAN CORPUSCULAR HEMOGLOBIN 31 pg (27.0-31.0); MEAN CORPUSCULAR HGB CONC 33 g/dl (33.0-37.0); MEAN PLATELET VOLUME 10.6 fl (7.4-10.4); PLATELET COUNT 192 K/mm3 (130-400); RED BLOOD COUNT 3.61 M/mm3 (4.10-5.30)
[2017-05-29 12:21] LABS: BAND 9 % (0-10); EOSINOPHIL 3 % (0-4); LYMPHOCYTE 13 % (20.0-51.0); NEUTROPHILS 69 % (42.0-75.2); PLATELET ESTIMATE NORMAL (NORMAL)
[2017-06-05 09:35] LABS: MEAN CELL VOLUME 94 fl (80.0-100.0); MEAN CORPUSCULAR HGB CONC 33 g/dl (33.0-37.0); MEAN PLATELET VOLUME 10.3 fl (7.4-10.4); PLATELET COUNT 197 K/mm3 (130-400); REDCELL DISTRIBUTION WIDTH-CV 19.3 % (11.5-14.5)
[2017-06-05 09:41] VITALS: BP 118/66; PULSE 61; TEMP 97.8
[2017-06-05 09:41] LABS: HEMATOCRIT 31.8 % (37.0-47.0); HEMOGLOBIN 10.4 g/dl (12.5-16.0); MEAN CORPUSCULAR HEMOGLOBIN 31 pg (27.0-31.0)
[2017-06-05 10:21] LABS: ANISOCYTOSIS 2+; BAND 16 % (0-10); BASOPHIL 1 % (0-2); EOSINOPHIL 1 % (0-4); HYPOCHROMIA 1+; LYMPHOCYTE 19 % (20.0-51.0); NEUTROPHILS 55 % (42.0-75.2); PLATELET ESTIMATE NORMAL (NORMAL)
[2017-06-12 11:50] LABS: MEAN CELL VOLUME 95 fl (80.0-100.0); MEAN CORPUSCULAR HGB CONC 33 g/dl (33.0-37.0); MEAN PLATELET VOLUME 10.6 fl (7.4-10.4); PLATELET COUNT 171 K/mm3 (130-400); RED BLOOD COUNT 3.74 M/mm3 (4.10-5.30)
[2017-06-12 12:04] LABS: ALBUMIN 3.9 gm/dL (3.5-5.0); BILIRUBIN,TOTAL 0.8 mg/dL (0.0-1.0); CALCIUM 8.7 mg/dL (8.4-10.2); CREATININE, serum 0.65 mg/dL (0.52-1.25); TOTAL PROTEIN 6.9 gm/dL (6.4-8.2)
[2017-06-12 12:08] VITALS: BP 99/62; PULSE 81; TEMP 98.6
[2017-06-12 12:40] LABS: BAND 16 % (0-10); EOSINOPHIL 1 % (0-4); LYMPHOCYTE 6 % (20.0-51.0); NEUTROPHILS 77 % (42.0-75.2); OVALOCYTES 1+; PLATELET ESTIMATE NORMAL (NORMAL); TEAR DROP CELLS 2+
[2017-06-12 13:09] LABS: HEMATOCRIT 35.4 % (37.0-47.0); HEMOGLOBIN 11.6 g/dl (12.5-16.0); MEAN CORPUSCULAR HEMOGLOBIN 31 pg (27.0-31.0)
[2017-06-12 13:10] LABS: POTASSIUM 2.7 mmol/L (3.4-5.0)
[2017-06-19 10:35] VITALS: BP 101/70; PULSE 82; TEMP 98.3
[2017-06-19 10:37] LABS: MEAN CELL VOLUME 94 fl (80.0-100.0); MEAN CORPUSCULAR HGB CONC 32 g/dl (33.0-37.0); MEAN PLATELET VOLUME 11.4 fl (7.4-10.4); PLATELET COUNT 147 K/mm3 (130-400); RED BLOOD COUNT 3.66 M/mm3 (4.10-5.30); REDCELL DISTRIBUTION WIDTH-CV 17.7 % (11.5-14.5)
[2017-06-19 11:00] LABS: HEMATOCRIT 34.5 % (37.0-47.0); MEAN CORPUSCULAR HEMOGLOBIN 30 pg (27.0-31.0)
[2017-06-19 11:26] LABS: BAND 20 % (0-10); EOSINOPHIL 3 % (0-4); LYMPHOCYTE 49 % (20.0-51.0); NEUTROPHILS 19 % (42.0-75.2); PLATELET ESTIMATE DECREASED (NORMAL); TOXIC GRANULATION PRESENT
[2017-06-19 11:27] LABS: DOHLE BODIES PRESENT
[2017-06-26 10:36] LABS: MEAN CELL VOLUME 94 fl (80.0-100.0); MEAN CORPUSCULAR HGB CONC 32 g/dl (33.0-37.0); MEAN PLATELET VOLUME 9.4 fl (7.4-10.4); PLATELET COUNT 196 K/mm3 (130-400); RED BLOOD COUNT 3.57 M/mm3 (4.10-5.30); REDCELL DISTRIBUTION WIDTH-CV 17.4 % (11.5-14.5)
[2017-06-26 10:37] LABS: HEMATOCRIT 33.4 % (37.0-47.0); HEMOGLOBIN 10.8 g/dl (12.5-16.0); MEAN CORPUSCULAR HEMOGLOBIN 30 pg (27.0-31.0)
[2017-06-26 10:47] VITALS: BP 109/67; PULSE 73; TEMP 97.9
[2017-06-26 12:09] LABS: BAND 11 % (0-10); BASOPHIL 1 % (0-2); EOSINOPHIL 1 % (0-4); LYMPHOCYTE 27 % (20.0-51.0); NEUTROPHILS 57 % (42.0-75.2)
[2017-06-26 12:10] LABS: ANISOCYTOSIS 1+; PLATELET ESTIMATE NORMAL (NORMAL); POLYCHROMASIA 1+
[2017-06-26 12:12] LABS: TEAR DROP CELLS 1+
[2017-07-03 11:12] VITALS: BP 93/60; PULSE 89; TEMP 98.7
[2017-07-03 11:31] LABS: BILIRUBIN,TOTAL 0.5 mg/dL (0.0-1.0); CALCIUM 8.6 mg/dL (8.4-10.2); CREATININE, serum 0.75 mg/dL (0.52-1.25); POTASSIUM 3.5 mmol/L (3.4-5.0); TOTAL PROTEIN 7.1 gm/dL (6.4-8.2)
[2017-07-03 11:32] LABS: HEMATOCRIT 37.1 % (37.0-47.0); HEMOGLOBIN 12.2 g/dl (12.5-16.0); MEAN CELL VOLUME 95 fl (80.0-100.0); MEAN CORPUSCULAR HEMOGLOBIN 31 pg (27.0-31.0); MEAN CORPUSCULAR HGB CONC 33 g/dl (33.0-37.0); MEAN PLATELET VOLUME 10.4 fl (7.4-10.4); PLATELET COUNT 179 K/mm3 (130-400); REDCELL DISTRIBUTION WIDTH-CV 18.7 % (11.5-14.5)
[2017-07-03 12:14] LABS: BAND 8 % (0-10); LYMPHOCYTE 5 % (20.0-51.0); NEUTROPHILS 87 % (42.0-75.2)
[2017-07-03 12:15] LABS: PLATELET ESTIMATE NORMAL (NORMAL)
[2017-07-03 12:16] LABS: ANISOCYTOSIS 1+; POIKILOCYTOSIS 1+
[2017-07-10 10:09] VITALS: BP 110/66; PULSE 77; TEMP 97.9
[2017-07-10 10:23] LABS: MEAN CELL VOLUME 94 fl (80.0-100.0); MEAN CORPUSCULAR HGB CONC 32 g/dl (33.0-37.0); MEAN PLATELET VOLUME 10.9 fl (7.4-10.4); PLATELET COUNT 166 K/mm3 (130-400); RED BLOOD COUNT 3.19 M/mm3 (4.10-5.30); REDCELL DISTRIBUTION WIDTH-CV 18.2 % (11.5-14.5)
[2017-07-10 10:25] LABS: ALBUMIN 3.5 gm/dL (3.5-5.0); BILIRUBIN,TOTAL 0.2 mg/dL (0.0-1.0); CALCIUM 8.5 mg/dL (8.4-10.2); CREATININE, serum 0.84 mg/dL (0.52-1.25); POTASSIUM 4.1 mmol/L (3.4-5.0); TOTAL PROTEIN 6.3 gm/dL (6.4-8.2)
[2017-07-10 10:26] LABS: HEMOGLOBIN 9.7 g/dl (12.5-16.0); MEAN CORPUSCULAR HEMOGLOBIN 30 pg (27.0-31.0)
[2017-07-10 10:46] LABS: BAND 24 % (0-10); EOSINOPHIL 7 % (0-4); LYMPHOCYTE 26 % (20.0-51.0); METAMYELOCYTE 3 % (0-0); NEUTROPHILS 31 % (42.0-75.2)
[2017-07-10 10:47] LABS: ANISOCYTOSIS 2+; HYPOCHROMIA 1+; POIKILOCYTOSIS 2+; POLYCHROMASIA 1+
[2017-07-10 10:49] LABS: PLATELET ESTIMATE NORMAL (NORMAL)
[2017-07-17 10:30] VITALS: BP 126/67; PULSE 68; TEMP 98
[2017-07-17 11:05] LABS: MEAN CELL VOLUME 93 fl (80.0-100.0); MEAN CORPUSCULAR HGB CONC 33 g/dl (33.0-37.0); MEAN PLATELET VOLUME 10.2 fl (7.4-10.4); PLATELET COUNT 229 K/mm3 (130-400); RED BLOOD COUNT 3.52 M/mm3 (4.10-5.30); REDCELL DISTRIBUTION WIDTH-CV 18.6 % (11.5-14.5)
[2017-07-17 11:33] LABS: BAND 8 % (0-10); EOSINOPHIL 2 % (0-4); LYMPHOCYTE 13 % (20.0-51.0); METAMYELOCYTE 1 % (0-0); NEUTROPHILS 72 % (42.0-75.2); PLATELET ESTIMATE NORMAL (NORMAL)
[2017-07-17 11:34] LABS: ANISOCYTOSIS 1+
[2017-07-17 11:37] LABS: HEMATOCRIT 32.8 % (37.0-47.0); HEMOGLOBIN 10.7 g/dl (12.5-16.0); MEAN CORPUSCULAR HEMOGLOBIN 30 pg (27.0-31.0)
[2017-07-24 11:09] VITALS: BP 103/69; PULSE 82; TEMP 98
[2017-07-24 14:07] LABS: MEAN CELL VOLUME 95 fl (80.0-100.0); MEAN CORPUSCULAR HGB CONC 32 g/dl (33.0-37.0); MEAN PLATELET VOLUME 11.4 fl (7.4-10.4); PLATELET COUNT 227 K/mm3 (130-400); RED BLOOD COUNT 3.59 M/mm3 (4.10-5.30); REDCELL DISTRIBUTION WIDTH-CV 19.4 % (11.5-14.5)
[2017-07-24 14:30] LABS: BAND 5 % (0-10); BASOPHIL 1 % (0-2); EOSINOPHIL 2 % (0-4); LYMPHOCYTE 18 % (20.0-51.0); NEUTROPHILS 70 % (42.0-75.2); PLATELET ESTIMATE NORMAL (NORMAL)
[2017-07-24 14:33] LABS: HEMATOCRIT 34.2 % (37.0-47.0); HEMOGLOBIN 10.9 g/dl (12.5-16.0); MEAN CORPUSCULAR HEMOGLOBIN 30 pg (27.0-31.0)
[2017-07-31 10:45] VITALS: BP 98/71; PULSE 78; TEMP 98
[2017-07-31 10:46] LABS: HEMATOCRIT 38.3 % (37.0-47.0); HEMOGLOBIN 12.7 g/dl (12.5-16.0); MEAN CELL VOLUME 92 fl (80.0-100.0); MEAN CORPUSCULAR HEMOGLOBIN 31 pg (27.0-31.0); MEAN CORPUSCULAR HGB CONC 33 g/dl (33.0-37.0); PLATELET COUNT 231 K/mm3 (130-400); RED BLOOD COUNT 4.17 M/mm3 (4.10-5.30); REDCELL DISTRIBUTION WIDTH-CV 18.4 % (11.5-14.5)
[2017-07-31 11:46] LABS: BAND 8 % (0-10); LYMPHOCYTE 5 % (20.0-51.0); NEUTROPHILS 87 % (42.0-75.2); PLATELET ESTIMATE NORMAL (NORMAL)
[2017-07-31 11:47] LABS: ANISOCYTOSIS 1+
[2017-08-07 10:41] VITALS: BP 115/76; PULSE 78; TEMP 98.5
[2017-08-07 10:55] LABS: MEAN CELL VOLUME 92 fl (80.0-100.0); MEAN CORPUSCULAR HGB CONC 32 g/dl (33.0-37.0); MEAN PLATELET VOLUME 10.6 fl (7.4-10.4); PLATELET COUNT 122 K/mm3 (130-400); RED BLOOD COUNT 3.37 M/mm3 (4.10-5.30); REDCELL DISTRIBUTION WIDTH-CV 17.5 % (11.5-14.5)
[2017-08-07 10:56] LABS: MEAN CORPUSCULAR HEMOGLOBIN 30 pg (27.0-31.0)
[2017-08-07 11:12] LABS: BAND 18 % (0-10); EOSINOPHIL 3 % (0-4); LYMPHOCYTE 45 % (20.0-51.0); METAMYELOCYTE 1 % (0-0); NEUTROPHILS 29 % (42.0-75.2); PLATELET ESTIMATE DECREASED (NORMAL)
[2017-08-07 11:13] LABS: ANISOCYTOSIS 1+; DOHLE BODIES PRESENT; HYPOCHROMIA 1+
[2017-08-07 11:39] LABS: ALBUMIN 3.5 gm/dL (3.5-5.0); BILIRUBIN,TOTAL 0.2 mg/dL (0.0-1.0); CALCIUM 8.8 mg/dL (8.4-10.2); CREATININE, serum 0.65 mg/dL (0.52-1.25); TOTAL PROTEIN 6.6 gm/dL (6.4-8.2)
[~2017-08-14] VITALS: Ht 165.1 cm; Wt 73.1 kg
[2017-08-14 10:39] LABS: MEAN CELL VOLUME 92 fl (80.0-100.0); MEAN CORPUSCULAR HGB CONC 33 g/dl (33.0-37.0); MEAN PLATELET VOLUME 10.4 fl (7.4-10.4); PLATELET COUNT 154 K/mm3 (130-400); RED BLOOD COUNT 3.69 M/mm3 (4.10-5.30); REDCELL DISTRIBUTION WIDTH-CV 17.6 % (11.5-14.5)
[2017-08-14 10:41] LABS: HEMATOCRIT 33.8 % (37.0-47.0); HEMOGLOBIN 11.1 g/dl (12.5-16.0); MEAN CORPUSCULAR HEMOGLOBIN 30 pg (27.0-31.0)
[2017-08-14 10:48] VITALS: BP 122/70; PULSE 77; TEMP 97.9
[2017-08-14 10:51] LABS: ALBUMIN 3.7 gm/dL (3.5-5.0); BILIRUBIN,TOTAL 0.4 mg/dL (0.0-1.0); CALCIUM 8.7 mg/dL (8.4-10.2); CREATININE, serum 0.65 mg/dL (0.52-1.25); POTASSIUM 3.8 mmol/L (3.4-5.0); TOTAL PROTEIN 6.9 gm/dL (6.4-8.2)
[2017-08-14 11:06] LABS: BAND 13 % (0-10); EOSINOPHIL 1 % (0-4); HYPOCHROMIA 1+; LYMPHOCYTE 15 % (20.0-51.0); NEUTROPHILS 66 % (42.0-75.2); PLATELET ESTIMATE NORMAL (NORMAL)
== END 2017-08-20 ==
LOC: EUO
PROVIDERS: Internal Medicine Medical Oncology
DX: C25.0 Malignant neoplasm of head of pancreas (principal)
CPT/HCPCS: J1644

== ENCOUNTER 2017-11-18 08:00 | Outpatient (RCR) | payer MEDICARE ==
[2017-08-24 10:15] VITALS: BP 109/63; PULSE 79; TEMP 98.4
[2017-08-24 10:22] LABS: MEAN CELL VOLUME 90 fl (80.0-100.0); MEAN CORPUSCULAR HGB CONC 33 g/dl (33.0-37.0); MEAN PLATELET VOLUME 10.5 fl (7.4-10.4); PLATELET COUNT 121 K/mm3 (130-400); RED BLOOD COUNT 3.78 M/mm3 (4.10-5.30); REDCELL DISTRIBUTION WIDTH-CV 18.1 % (11.5-14.5)
[2017-08-24 10:24] LABS: HEMATOCRIT 34.1 % (37.0-47.0); HEMOGLOBIN 11.3 g/dl (12.5-16.0); MEAN CORPUSCULAR HEMOGLOBIN 30 pg (27.0-31.0)
[2017-08-24 10:48] LABS: BAND 12 % (0-10); LYMPHOCYTE 32 % (20.0-51.0); NEUTROPHILS 52 % (42.0-75.2); PLATELET ESTIMATE DECREASED (NORMAL)
[2017-08-24 10:49] LABS: ANISOCYTOSIS 1+; HYPOCHROMIA 1+
[2017-09-04 10:20] VITALS: BP 122/71; PULSE 72; TEMP 98
[2017-09-04 10:22] LABS: MEAN CELL VOLUME 92 fl (80.0-100.0); MEAN CORPUSCULAR HGB CONC 33 g/dl (33.0-37.0); MEAN PLATELET VOLUME 10.1 fl (7.4-10.4); PLATELET COUNT 219 K/mm3 (130-400); RED BLOOD COUNT 3.65 M/mm3 (4.10-5.30); REDCELL DISTRIBUTION WIDTH-CV 18.6 % (11.5-14.5)
[2017-09-04 10:24] LABS: HEMATOCRIT 33.7 % (37.0-47.0); MEAN CORPUSCULAR HEMOGLOBIN 30 pg (27.0-31.0)
[2017-09-04 11:16] LABS: BAND 7 % (0-10); BASOPHIL 1 % (0-2); EOSINOPHIL 2 % (0-4); LYMPHOCYTE 22 % (20.0-51.0); NEUTROPHILS 65 % (42.0-75.2); PLATELET ESTIMATE NORMAL (NORMAL)
[2017-09-14 10:42] VITALS: BP 106/68; PULSE 88; TEMP 98.1
[2017-09-14 10:51] LABS: MEAN CELL VOLUME 92 fl (80.0-100.0); MEAN CORPUSCULAR HGB CONC 33 g/dl (33.0-37.0); MEAN PLATELET VOLUME 10.8 fl (7.4-10.4); PLATELET COUNT 124 K/mm3 (130-400); RED BLOOD COUNT 3.71 M/mm3 (4.10-5.30); REDCELL DISTRIBUTION WIDTH-CV 18.5 % (11.5-14.5)
[2017-09-14 10:53] LABS: HEMATOCRIT 34.1 % (37.0-47.0); HEMOGLOBIN 11.2 g/dl (12.5-16.0); MEAN CORPUSCULAR HEMOGLOBIN 30 pg (27.0-31.0)
[2017-09-14 11:44] LABS: BAND 6 % (0-10); BASOPHIL 1 % (0-2); EOSINOPHIL 1 % (0-4); LYMPHOCYTE 20 % (20.0-51.0); NEUTROPHILS 71 % (42.0-75.2)
[2017-09-14 11:45] LABS: DOHLE BODIES PRESENT; TEAR DROP CELLS 2+; TOXIC GRANULATION PRESENT
[2017-09-14 11:46] LABS: ANISOCYTOSIS 1+; PLATELET ESTIMATE DECREASED (NORMAL); POIKILOCYTOSIS 1+
[2017-09-14 11:48] LABS: BURR CELLS 1+
[2017-09-18 10:45] VITALS: BP 127/73; PULSE 76; TEMP 98
[2017-09-18 11:12] LABS: HEMATOCRIT 32.2 % (37.0-47.0); HEMOGLOBIN 10.4 g/dl (12.5-16.0); MEAN CELL VOLUME 93 fl (80.0-100.0); MEAN CORPUSCULAR HEMOGLOBIN 30 pg (27.0-31.0); MEAN CORPUSCULAR HGB CONC 32 g/dl (33.0-37.0); MEAN PLATELET VOLUME 11.1 fl (7.4-10.4); PLATELET COUNT 152 K/mm3 (130-400); RED BLOOD COUNT 3.47 M/mm3 (4.10-5.30); REDCELL DISTRIBUTION WIDTH-CV 19.2 % (11.5-14.5)
[2017-09-18 11:18] LABS: ALBUMIN 3.7 gm/dL (3.5-5.0); BILIRUBIN,TOTAL 0.2 mg/dL (0.0-1.0); CALCIUM 9.1 mg/dL (8.4-10.2); CREATININE, serum 0.67 mg/dL (0.52-1.25); POTASSIUM 3.8 mmol/L (3.4-5.0); TOTAL PROTEIN 6.8 gm/dL (6.4-8.2)
[2017-09-18 11:34] LABS: BAND 18 % (0-10); EOSINOPHIL 1 % (0-4); LYMPHOCYTE 30 % (20.0-51.0); METAMYELOCYTE 1 % (0-0); NEUTROPHILS 49 % (42.0-75.2); PLATELET ESTIMATE NORMAL (NORMAL)
[2017-09-25 10:22] VITALS: BP 106/65; PULSE 79; TEMP 98
[2017-09-25 10:52] LABS: HEMOGLOBIN 10.4 g/dl (12.5-16.0); MEAN CELL VOLUME 93 fl (80.0-100.0); MEAN CORPUSCULAR HEMOGLOBIN 30 pg (27.0-31.0); MEAN CORPUSCULAR HGB CONC 32 g/dl (33.0-37.0); MEAN PLATELET VOLUME 10.2 fl (7.4-10.4); PLATELET COUNT 192 K/mm3 (130-400); RED BLOOD COUNT 3.44 M/mm3 (4.10-5.30); REDCELL DISTRIBUTION WIDTH-CV 19.3 % (11.5-14.5)
[2017-09-25 10:54] LABS: HEMATOCRIT 32.1 % (37.0-47.0)
[2017-09-25 11:12] LABS: ANISOCYTOSIS 2+; BAND 15 % (0-10); EOSINOPHIL 3 % (0-4); LYMPHOCYTE 14 % (20.0-51.0); NEUTROPHILS 65 % (42.0-75.2); PLATELET ESTIMATE NORMAL (NORMAL); POLYCHROMASIA 1+; SCHISTOCYTES 1+; TEAR DROP CELLS 1+
[2017-10-02 09:57] VITALS: BP 101/77; PULSE 90; TEMP 98
[2017-10-02 10:11] LABS: HEMOGLOBIN 11.8 g/dl (12.5-16.0); MEAN CELL VOLUME 93 fl (80.0-100.0); MEAN CORPUSCULAR HEMOGLOBIN 30 pg (27.0-31.0); MEAN CORPUSCULAR HGB CONC 32 g/dl (33.0-37.0); MEAN PLATELET VOLUME 10.4 fl (7.4-10.4); PLATELET COUNT 200 K/mm3 (130-400); RED BLOOD COUNT 3.96 M/mm3 (4.10-5.30); REDCELL DISTRIBUTION WIDTH-CV 19.9 % (11.5-14.5)
[2017-10-02 10:12] LABS: HEMATOCRIT 36.7 % (37.0-47.0)
[2017-10-02 10:56] LABS: BAND 22 % (0-10); EOSINOPHIL 2 % (0-4); LYMPHOCYTE 14 % (20.0-51.0); METAMYELOCYTE 2 % (0-0); NEUTROPHILS 60 % (42.0-75.2); TEAR DROP CELLS 1+
[2017-10-02 10:57] LABS: PLATELET ESTIMATE NORMAL (NORMAL)
[2017-10-09 10:15] VITALS: BP 84/57; PULSE 74; TEMP 98.3
[2017-10-09 10:33] LABS: HEMOGLOBIN 11.6 g/dl (12.5-16.0); MEAN CELL VOLUME 91 fl (80.0-100.0); MEAN CORPUSCULAR HEMOGLOBIN 30 pg (27.0-31.0); MEAN CORPUSCULAR HGB CONC 33 g/dl (33.0-37.0); MEAN PLATELET VOLUME 10.9 fl (7.4-10.4); PLATELET COUNT 185 K/mm3 (130-400); RED BLOOD COUNT 3.83 M/mm3 (4.10-5.30); REDCELL DISTRIBUTION WIDTH-CV 18.8 % (11.5-14.5)
[2017-10-09 10:48] LABS: BAND 6 % (0-10); LYMPHOCYTE 4 % (20.0-51.0); NEUTROPHILS 90 % (42.0-75.2); PLATELET ESTIMATE NORMAL (NORMAL)
[2017-10-09 10:49] LABS: ANISOCYTOSIS 1+
[2017-10-09 10:57] LABS: ALBUMIN 3.7 gm/dL (3.5-5.0); BILIRUBIN,TOTAL 0.8 mg/dL (0.0-1.0); CALCIUM 8.8 mg/dL (8.4-10.2); CREATININE, serum 0.61 mg/dL (0.52-1.25); POTASSIUM 3.8 mmol/L (3.4-5.0); TOTAL PROTEIN 7.2 gm/dL (6.4-8.2)
[2017-10-23 12:39] LABS: HEMOGLOBIN 10.8 g/dl (12.5-16.0); MEAN CELL VOLUME 91 fl (80.0-100.0); MEAN CORPUSCULAR HEMOGLOBIN 30 pg (27.0-31.0); MEAN CORPUSCULAR HGB CONC 33 g/dl (33.0-37.0); MEAN PLATELET VOLUME 10.7 fl (7.4-10.4); PLATELET COUNT 169 K/mm3 (130-400); RED BLOOD COUNT 3.65 M/mm3 (4.10-5.30); REDCELL DISTRIBUTION WIDTH-CV 18.8 % (11.5-14.5)
[2017-10-23 12:42] LABS: HEMATOCRIT 33.1 % (37.0-47.0)
[2017-10-23 12:45] VITALS: BP 111/63; PULSE 77; TEMP 98.1
[2017-10-23 13:11] LABS: BAND 3 % (0-10); LYMPHOCYTE 20 % (20.0-51.0); MICROCYTOSIS 1+; NEUTROPHILS 75 % (42.0-75.2); PLATELET ESTIMATE NORMAL (NORMAL)
[2017-10-30 10:52] VITALS: BP 124/74; PULSE 72; TEMP 98.3
[2017-10-30 10:56] LABS: MEAN CELL VOLUME 92 fl (80.0-100.0); MEAN CORPUSCULAR HEMOGLOBIN 29 pg (27.0-31.0); MEAN CORPUSCULAR HGB CONC 32 g/dl (33.0-37.0); MEAN PLATELET VOLUME 10.8 fl (7.4-10.4); PLATELET COUNT 185 K/mm3 (130-400); RED BLOOD COUNT 3.74 M/mm3 (4.10-5.30); REDCELL DISTRIBUTION WIDTH-CV 19.3 % (11.5-14.5)
[2017-10-30 10:58] LABS: HEMATOCRIT 34.4 % (37.0-47.0)
[2017-10-30 11:06] LABS: ALBUMIN 3.8 gm/dL (3.5-5.0); BILIRUBIN,TOTAL 0.7 mg/dL (0.0-1.0); CALCIUM 9.1 mg/dL (8.4-10.2); CREATININE, serum 0.65 mg/dL (0.52-1.25); POTASSIUM 3.8 mmol/L (3.4-5.0); TOTAL PROTEIN 7.3 gm/dL (6.4-8.2)
[2017-10-30 11:28] LABS: BAND 6 % (0-10); BASOPHIL 1 % (0-2); EOSINOPHIL 2 % (0-4); LYMPHOCYTE 26 % (20.0-51.0); NEUTROPHILS 63 % (42.0-75.2); TEAR DROP CELLS 1+
[2017-11-06 10:07] LABS: HEMOGLOBIN 10.9 g/dl (12.5-16.0); MEAN CELL VOLUME 92 fl (80.0-100.0); MEAN CORPUSCULAR HEMOGLOBIN 30 pg (27.0-31.0); MEAN CORPUSCULAR HGB CONC 33 g/dl (33.0-37.0); MEAN PLATELET VOLUME 11.1 fl (7.4-10.4); PLATELET COUNT 219 K/mm3 (130-400); RED BLOOD COUNT 3.62 M/mm3 (4.10-5.30); REDCELL DISTRIBUTION WIDTH-CV 18.3 % (11.5-14.5)
[2017-11-06 10:14] VITALS: BP 124/65; PULSE 65; TEMP 97.5
[2017-11-06 10:18] LABS: HEMATOCRIT 33.2 % (37.0-47.0)
[2017-11-06 10:28] LABS: BAND 5 % (0-10); EOSINOPHIL 2 % (0-4); LYMPHOCYTE 20 % (20.0-51.0); NEUTROPHILS 68 % (42.0-75.2); PLATELET ESTIMATE NORMAL (NORMAL)
[2017-11-16 09:56] VITALS: BP 103/71; PULSE 82; TEMP 97.6
[2017-11-16 09:58] LABS: MEAN CELL VOLUME 90 fl (80.0-100.0); MEAN CORPUSCULAR HEMOGLOBIN 30 pg (27.0-31.0); MEAN CORPUSCULAR HGB CONC 33 g/dl (33.0-37.0); MEAN PLATELET VOLUME 10.9 fl (7.4-10.4); PLATELET COUNT 107 K/mm3 (130-400); RED BLOOD COUNT 4.06 M/mm3 (4.10-5.30); REDCELL DISTRIBUTION WIDTH-CV 16.8 % (11.5-14.5)
[2017-11-16 10:06] LABS: HEMATOCRIT 36.5 % (37.0-47.0)
[2017-11-16 10:58] LABS: BAND 4 % (0-10); BASOPHIL 4 % (0-2); EOSINOPHIL 2 % (0-4); NEUTROPHILS 14 % (42.0-75.2)
[2017-11-16 10:59] LABS: PLATELET ESTIMATE DECREASED (NORMAL)
[2017-11-16 11:00] LABS: LYMPHOCYTE 70 % (20.0-51.0)
[~2017-11-18] VITALS: Ht 165.1 cm; Wt 70.0 kg
[2017-11-18 08:30] VITALS: BP 105/67; PULSE 72; TEMP 98
[2017-11-18 10:30] LABS: HEMOGLOBIN 10.7 g/dl (12.5-16.0); MEAN CELL VOLUME 91 fl (80.0-100.0); MEAN CORPUSCULAR HEMOGLOBIN 29 pg (27.0-31.0); MEAN CORPUSCULAR HGB CONC 32 g/dl (33.0-37.0); PLATELET COUNT 82 K/mm3 (130-400); RED BLOOD COUNT 3.67 M/mm3 (4.10-5.30); REDCELL DISTRIBUTION WIDTH-CV 16.9 % (11.5-14.5)
[2017-11-18 10:32] LABS: HEMATOCRIT 33.3 % (37.0-47.0)
[2017-11-18 10:40] LABS: ALBUMIN 3.5 gm/dL (3.5-5.0); BILIRUBIN,TOTAL 0.4 mg/dL (0.0-1.0); CALCIUM 8.6 mg/dL (8.4-10.2); CREATININE, serum 0.6 mg/dL (0.52-1.25); POTASSIUM 3.5 mmol/L (3.4-5.0); TOTAL PROTEIN 6.4 gm/dL (6.4-8.2)
[2017-11-18 10:50] LABS: BAND 2 % (0-10); EOSINOPHIL 2 % (0-4); LYMPHOCYTE 74 % (20.0-51.0); NEUTROPHILS 16 % (42.0-75.2)
[2017-11-18 10:51] LABS: PLATELET ESTIMATE DECREASED (NORMAL)
[2017-11-18 10:52] LABS: ANISOCYTOSIS 1+; HYPOCHROMIA 1+
[2017-12-18] MEDS ORDERED: DIFLUCAN50 MG PO (10:25)
[2017-12-25] MEDS ORDERED: VITAMIN C500 MG PO (10:44)
== END 2017-11-22 | disposition still patient (30) ==
LOC: EUO
PROVIDERS: Internal Medicine Medical Oncology
DX: C25.0 Malignant neoplasm of head of pancreas (principal)
CPT/HCPCS: J1644

== ENCOUNTER → 2017-12-11 | Outpatient (CLI) | payer MEDICARE | LOC: COL.VAS 12-08 12:30 | DX: C25.0 Malignant neoplasm of head of pancreas (principal); I82.90 Acute embolism and thrombosis of unspecified vein; M79.662 Pain in left lower leg; M79.89 Other specified soft tissue disorders ==

== ENCOUNTER 2018-02-26 11:00 | Outpatient (RCR) | payer MEDICARE ==
[2017-12-04 11:12] LABS: HEMOGLOBIN 10.3 g/dl (12.5-16.0); MEAN CELL VOLUME 92 fl (80.0-100.0); MEAN CORPUSCULAR HEMOGLOBIN 29 pg (27.0-31.0); MEAN CORPUSCULAR HGB CONC 32 g/dl (33.0-37.0); MEAN PLATELET VOLUME 10.2 fl (7.4-10.4); PLATELET COUNT 229 K/mm3 (130-400); RED BLOOD COUNT 3.51 M/mm3 (4.10-5.30); REDCELL DISTRIBUTION WIDTH-CV 19.5 % (11.5-14.5)
[2017-12-04 11:13] LABS: HEMATOCRIT 32.4 % (37.0-47.0)
[2017-12-04 11:40] LABS: BAND 3 % (0-10); LYMPHOCYTE 18 % (20.0-51.0); METAMYELOCYTE 1 % (0-0); NEUTROPHILS 73 % (42.0-75.2)
[2017-12-04 11:44] LABS: PLATELET ESTIMATE NORMAL (NORMAL)
[2017-12-04 11:45] LABS: HYPOCHROMIA 1+; OVALOCYTES 1+; POIKILOCYTOSIS 1+; TEAR DROP CELLS 1+
[2017-12-11 11:19] VITALS: BP 97/51; PULSE 83; TEMP 97.9
[2017-12-11 11:30] LABS: HEMATOCRIT 38.4 % (37.0-47.0); HEMOGLOBIN 12.2 g/dl (12.5-16.0); MEAN CELL VOLUME 92 fl (80.0-100.0); MEAN CORPUSCULAR HEMOGLOBIN 29 pg (27.0-31.0); MEAN CORPUSCULAR HGB CONC 32 g/dl (33.0-37.0); MEAN PLATELET VOLUME 11.5 fl (7.4-10.4); PLATELET COUNT 250 K/mm3 (130-400); RED BLOOD COUNT 4.16 M/mm3 (4.10-5.30); REDCELL DISTRIBUTION WIDTH-CV 18.4 % (11.5-14.5)
[2017-12-11 11:57] LABS: ANISOCYTOSIS 1+; BAND 3 % (0-10); LYMPHOCYTE 4 % (20.0-51.0); NEUTROPHILS 93 % (42.0-75.2); PLATELET ESTIMATE NORMAL (NORMAL)
[2017-12-18 10:36] VITALS: BP 111/63; PULSE 70; TEMP 97.7
[2017-12-18 10:41] LABS: HEMATOCRIT 31.3 % (37.0-47.0); HEMOGLOBIN 10.2 g/dl (12.5-16.0); MEAN CELL VOLUME 91 fl (80.0-100.0); MEAN CORPUSCULAR HEMOGLOBIN 30 pg (27.0-31.0); MEAN CORPUSCULAR HGB CONC 33 g/dl (33.0-37.0); MEAN PLATELET VOLUME 11.3 fl (7.4-10.4); PLATELET COUNT 133 K/mm3 (130-400); RED BLOOD COUNT 3.46 M/mm3 (4.10-5.30); REDCELL DISTRIBUTION WIDTH-CV 18.1 % (11.5-14.5)
[2017-12-18 10:53] LABS: ALBUMIN 3.7 gm/dL (3.5-5.0); BILIRUBIN,TOTAL 0.2 mg/dL (0.0-1.0); CALCIUM 8.8 mg/dL (8.4-10.2); CREATININE, serum 0.85 mg/dL (0.52-1.25); TOTAL PROTEIN 6.5 gm/dL (6.4-8.2)
[2017-12-18 12:40] LABS: BAND 29 % (0-10); BASOPHIL 1 % (0-2); EOSINOPHIL 1 % (0-4); LYMPHOCYTE 29 % (20.0-51.0); METAMYELOCYTE 5 % (0-0); NEUTROPHILS 28 % (42.0-75.2)
[2017-12-18 12:42] LABS: ANISOCYTOSIS 2+; HYPOCHROMIA 1+; MICROCYTOSIS 1+
[2017-12-25 10:58] VITALS: BP 123/71; PULSE 72; TEMP 98
[2017-12-25 11:00] LABS: MEAN CELL VOLUME 92 fl (80.0-100.0); MEAN CORPUSCULAR HEMOGLOBIN 29 pg (27.0-31.0); MEAN CORPUSCULAR HGB CONC 32 g/dl (33.0-37.0); MEAN PLATELET VOLUME 10.2 fl (7.4-10.4); PLATELET COUNT 130 K/mm3 (130-400); RED BLOOD COUNT 3.76 M/mm3 (4.10-5.30); REDCELL DISTRIBUTION WIDTH-CV 18.9 % (11.5-14.5)
[2017-12-25 11:02] LABS: HEMATOCRIT 34.6 % (37.0-47.0)
[2017-12-25 11:21] LABS: BAND 5 % (0-10); LYMPHOCYTE 27 % (20.0-51.0); METAMYELOCYTE 1 % (0-0); NEUTROPHILS 66 % (42.0-75.2)
[2017-12-25 11:23] LABS: PLATELET ESTIMATE NORMAL (NORMAL)
[2018-01-04 10:58] VITALS: BP 124/74; PULSE 71; TEMP 98.2
[2018-01-04 12:01] LABS: HEMOGLOBIN 11.2 g/dl (12.5-16.0); MEAN CELL VOLUME 90 fl (80.0-100.0); MEAN CORPUSCULAR HEMOGLOBIN 30 pg (27.0-31.0); MEAN CORPUSCULAR HGB CONC 33 g/dl (33.0-37.0); MEAN PLATELET VOLUME 11.3 fl (7.4-10.4); PLATELET COUNT 143 K/mm3 (130-400); RED BLOOD COUNT 3.79 M/mm3 (4.10-5.30); REDCELL DISTRIBUTION WIDTH-CV 18.8 % (11.5-14.5)
[2018-01-04 12:35] LABS: BAND 6 % (0-10); BASOPHIL 2 % (0-2); EOSINOPHIL 1 % (0-4); LYMPHOCYTE 36 % (20.0-51.0); NEUTROPHILS 53 % (42.0-75.2); OVALOCYTES 1+; PLATELET ESTIMATE NORMAL (NORMAL)
[2018-01-05 10:38] VITALS: BP 106/63; PULSE 78; TEMP 98.9
[2018-01-08 10:04] LABS: HEMOGLOBIN 10.3 g/dl (12.5-16.0); MEAN CELL VOLUME 91 fl (80.0-100.0); MEAN CORPUSCULAR HEMOGLOBIN 30 pg (27.0-31.0); MEAN CORPUSCULAR HGB CONC 33 g/dl (33.0-37.0); MEAN PLATELET VOLUME 10.9 fl (7.4-10.4); PLATELET COUNT 202 K/mm3 (130-400); RED BLOOD COUNT 3.48 M/mm3 (4.10-5.30); REDCELL DISTRIBUTION WIDTH-CV 19.2 % (11.5-14.5)
[2018-01-08 10:07] LABS: HEMATOCRIT 31.7 % (37.0-47.0)
[2018-01-08 10:22] VITALS: BP 103/59; PULSE 85; TEMP 97.8
[2018-01-08 11:13] LABS: ANISOCYTOSIS 1+; BAND 29 % (0-10); BASOPHIL 2 % (0-2); DOHLE BODIES PRESENT; LYMPHOCYTE 28 % (20.0-51.0); METAMYELOCYTE 1 % (0-0); NEUTROPHILS 37 % (42.0-75.2); TOXIC GRANULATION PRESENT
[2018-01-08 11:14] LABS: PLATELET ESTIMATE NORMAL (NORMAL)
[2018-01-15 11:00] VITALS: BP 124/76; PULSE 73; TEMP 98.4
[2018-01-15 11:01] LABS: HEMATOCRIT 33.8 % (37.0-47.0); HEMOGLOBIN 10.9 g/dl (12.5-16.0); MEAN CELL VOLUME 92 fl (80.0-100.0); MEAN CORPUSCULAR HEMOGLOBIN 30 pg (27.0-31.0); MEAN CORPUSCULAR HGB CONC 32 g/dl (33.0-37.0); MEAN PLATELET VOLUME 10.3 fl (7.4-10.4); PLATELET COUNT 210 K/mm3 (130-400); RED BLOOD COUNT 3.69 M/mm3 (4.10-5.30); REDCELL DISTRIBUTION WIDTH-CV 19.7 % (11.5-14.5)
[2018-01-15 11:10] LABS: ALBUMIN 3.7 gm/dL (3.5-5.0); BILIRUBIN,TOTAL 0.3 mg/dL (0.0-1.0); CALCIUM 8.6 mg/dL (8.4-10.2); CREATININE, serum 0.66 mg/dL (0.52-1.25); POTASSIUM 4.1 mmol/L (3.4-5.0); TOTAL PROTEIN 6.8 gm/dL (6.4-8.2)
[2018-01-15 11:29] LABS: ANISOCYTOSIS 2+; BAND 2 % (0-10); BASOPHIL 2 % (0-2); EOSINOPHIL 2 % (0-4); LYMPHOCYTE 25 % (20.0-51.0); MYELOCYTE 1 % (0-0); NEUTROPHILS 61 % (42.0-75.2); PLATELET ESTIMATE NORMAL (NORMAL); POLYCHROMASIA 1+
[2018-01-22 11:10] VITALS: BP 132/73; PULSE 73; TEMP 98
[2018-01-22 11:14] LABS: MEAN CELL VOLUME 91 fl (80.0-100.0); MEAN CORPUSCULAR HEMOGLOBIN 29 pg (27.0-31.0); MEAN CORPUSCULAR HGB CONC 32 g/dl (33.0-37.0); MEAN PLATELET VOLUME 10.3 fl (7.4-10.4); PLATELET COUNT 179 K/mm3 (130-400); RED BLOOD COUNT 3.75 M/mm3 (4.10-5.30)
[2018-01-22 11:26] LABS: ANISOCYTOSIS 2+; BAND 12 % (0-10); BASOPHIL 1 % (0-2); EOSINOPHIL 3 % (0-4); LYMPHOCYTE 22 % (20.0-51.0); METAMYELOCYTE 1 % (0-0); NEUTROPHILS 61 % (42.0-75.2); PLATELET ESTIMATE NORMAL (NORMAL)
[2018-01-28 10:30] LABS: HEMATOCRIT 39.9 % (37.0-47.0); HEMOGLOBIN 13.1 g/dl (12.5-16.0); MEAN CELL VOLUME 89 fl (80.0-100.0); MEAN CORPUSCULAR HEMOGLOBIN 29 pg (27.0-31.0); MEAN CORPUSCULAR HGB CONC 33 g/dl (33.0-37.0); MEAN PLATELET VOLUME 10.5 fl (7.4-10.4); PLATELET COUNT 242 K/mm3 (130-400); RED BLOOD COUNT 4.47 M/mm3 (4.10-5.30); REDCELL DISTRIBUTION WIDTH-CV 19.3 % (11.5-14.5)
[2018-01-28 10:34] VITALS: BP 102/70; PULSE 66; TEMP 98.1
[2018-01-28 10:41] LABS: BAND 2 % (0-10); LYMPHOCYTE 20 % (20.0-51.0); NEUTROPHILS 78 % (42.0-75.2)
[2018-01-28 10:42] LABS: PLATELET ESTIMATE NORMAL (NORMAL)
[2018-02-05 10:41] LABS: HEMOGLOBIN 10.8 g/dl (12.5-16.0); MEAN CELL VOLUME 91 fl (80.0-100.0); MEAN CORPUSCULAR HEMOGLOBIN 29 pg (27.0-31.0); MEAN CORPUSCULAR HGB CONC 32 g/dl (33.0-37.0); PLATELET COUNT 164 K/mm3 (130-400); RED BLOOD COUNT 3.69 M/mm3 (4.10-5.30); REDCELL DISTRIBUTION WIDTH-CV 19.3 % (11.5-14.5)
[2018-02-05 10:50] LABS: ALBUMIN 3.6 gm/dL (3.5-5.0); BILIRUBIN,TOTAL 0.2 mg/dL (0.0-1.0); CALCIUM 8.7 mg/dL (8.4-10.2); CREATININE, serum 0.7 mg/dL (0.52-1.25); POTASSIUM 3.9 mmol/L (3.4-5.0); TOTAL PROTEIN 6.5 gm/dL (6.4-8.2)
[2018-02-05 10:53] LABS: HEMATOCRIT 33.7 % (37.0-47.0)
[2018-02-05 11:02] VITALS: BP 134/73; PULSE 77; TEMP 97.9
[2018-02-05 11:27] LABS: ANISOCYTOSIS 1+; BAND 15 % (0-10); LYMPHOCYTE 35 % (20.0-51.0); NEUTROPHILS 45 % (42.0-75.2); PLATELET ESTIMATE NORMAL (NORMAL)
[2018-02-12 10:38] VITALS: BP 123/83; PULSE 77; TEMP 97.7
[2018-02-12 10:48] LABS: HEMOGLOBIN 11.5 g/dl (12.5-16.0); MEAN CELL VOLUME 91 fl (80.0-100.0); MEAN CORPUSCULAR HEMOGLOBIN 30 pg (27.0-31.0); MEAN CORPUSCULAR HGB CONC 33 g/dl (33.0-37.0); MEAN PLATELET VOLUME 10.5 fl (7.4-10.4); PLATELET COUNT 165 K/mm3 (130-400); RED BLOOD COUNT 3.88 M/mm3 (4.10-5.30); REDCELL DISTRIBUTION WIDTH-CV 19.9 % (11.5-14.5)
[2018-02-12 10:49] LABS: HEMATOCRIT 35.3 % (37.0-47.0)
[2018-02-12 11:09] LABS: BAND 17 % (0-10); EOSINOPHIL 2 % (0-4); LYMPHOCYTE 23 % (20.0-51.0); NEUTROPHILS 53 % (42.0-75.2); PLATELET ESTIMATE NORMAL (NORMAL); POLYCHROMASIA 1+
[2018-02-12 11:10] LABS: ANISOCYTOSIS 2+
[2018-02-22 10:23] LABS: HEMOGLOBIN 11.9 g/dl (12.5-16.0); MEAN CELL VOLUME 89 fl (80.0-100.0); MEAN CORPUSCULAR HEMOGLOBIN 29 pg (27.0-31.0); MEAN CORPUSCULAR HGB CONC 33 g/dl (33.0-37.0); MEAN PLATELET VOLUME 11.1 fl (7.4-10.4); PLATELET COUNT 132 K/mm3 (130-400); RED BLOOD COUNT 4.05 M/mm3 (4.10-5.30); REDCELL DISTRIBUTION WIDTH-CV 19.7 % (11.5-14.5)
[2018-02-22 10:26] LABS: HEMATOCRIT 36.2 % (37.0-47.0)
[2018-02-22 10:38] LABS: BAND 14 % (0-10); LYMPHOCYTE 15 % (20.0-51.0); NEUTROPHILS 65 % (42.0-75.2)
[2018-02-22 10:39] LABS: PLATELET ESTIMATE DECREASED (NORMAL); TEAR DROP CELLS 1+
[2018-02-22 10:40] LABS: DOHLE BODIES PRESENT
[2018-02-22 10:44] VITALS: BP 107/69; PULSE 84; TEMP 97.6
[~2018-02-26] VITALS: Ht 165.1 cm; Wt 73.8 kg
[2018-02-26 10:52] VITALS: BP 130/76; PULSE 84; TEMP 98.1
[~2018-02-26 11:00] MED LIST changes: +DIFLUCAN50 MG PO; +VITAMIN C500 MG PO
[2018-02-26 11:03] LABS: HEMOGLOBIN 10.7 g/dl (12.5-16.0); MEAN CELL VOLUME 92 fl (80.0-100.0); MEAN CORPUSCULAR HEMOGLOBIN 30 pg (27.0-31.0); MEAN CORPUSCULAR HGB CONC 33 g/dl (33.0-37.0); MEAN PLATELET VOLUME 10.6 fl (7.4-10.4); PLATELET COUNT 185 K/mm3 (130-400); RED BLOOD COUNT 3.58 M/mm3 (4.10-5.30); REDCELL DISTRIBUTION WIDTH-CV 19.9 % (11.5-14.5)
[2018-02-26 11:06] LABS: HEMATOCRIT 32.8 % (37.0-47.0)
[2018-02-26 11:14] LABS: ALBUMIN 3.6 gm/dL (3.5-5.0); BILIRUBIN,TOTAL 0.2 mg/dL (0.0-1.0); CALCIUM 8.5 mg/dL (8.4-10.2); CREATININE, serum 0.7 mg/dL (0.52-1.25); POTASSIUM 3.7 mmol/L (3.4-5.0); TOTAL PROTEIN 6.4 gm/dL (6.4-8.2)
[2018-02-26 11:51] LABS: ANISOCYTOSIS 2+; BAND 25 % (0-10); BASOPHIL 1 % (0-2); EOSINOPHIL 2 % (0-4); LYMPHOCYTE 23 % (20.0-51.0); NEUTROPHILS 38 % (42.0-75.2); PLATELET ESTIMATE NORMAL (NORMAL)
== END 2018-03-04 | disposition home or self-care (01) ==
LOC: EUO
PROVIDERS: Internal Medicine Medical Oncology
DX: C25.0 Malignant neoplasm of head of pancreas (principal); Z45.2 Encounter for adjustment and management of vascular access device; Z95.9 Presence of cardiac and vascular implant and graft, unspecified
CPT/HCPCS: C1751; C1894

== ENCOUNTER 2018-05-07 10:00 | Outpatient (RCR) | payer MEDICARE ==
[2018-03-05 10:43] VITALS: BP 114/81; PULSE 84; TEMP 98.3
[2018-03-05 10:49] LABS: HEMOGLOBIN 10.9 g/dl (12.5-16.0); MEAN CELL VOLUME 92 fl (80.0-100.0); MEAN CORPUSCULAR HEMOGLOBIN 30 pg (27.0-31.0); MEAN CORPUSCULAR HGB CONC 33 g/dl (33.0-37.0); MEAN PLATELET VOLUME 10.4 fl (7.4-10.4); PLATELET COUNT 190 K/mm3 (130-400); RED BLOOD COUNT 3.62 M/mm3 (4.10-5.30); REDCELL DISTRIBUTION WIDTH-CV 20.4 % (11.5-14.5)
[2018-03-05 10:59] LABS: HEMATOCRIT 33.2 % (37.0-47.0)
[2018-03-05 11:38] LABS: BAND 20 % (0-10); BASOPHIL 2 % (0-2); EOSINOPHIL 3 % (0-4); LYMPHOCYTE 15 % (20.0-51.0); NEUTROPHILS 56 % (42.0-75.2); PLATELET ESTIMATE NORMAL (NORMAL)
[2018-03-12 10:47] LABS: HEMATOCRIT 38.1 % (37.0-47.0); HEMOGLOBIN 12.7 g/dl (12.5-16.0); MEAN CELL VOLUME 90 fl (80.0-100.0); MEAN CORPUSCULAR HEMOGLOBIN 30 pg (27.0-31.0); MEAN CORPUSCULAR HGB CONC 33 g/dl (33.0-37.0); MEAN PLATELET VOLUME 10.5 fl (7.4-10.4); PLATELET COUNT 189 K/mm3 (130-400); RED BLOOD COUNT 4.23 M/mm3 (4.10-5.30); REDCELL DISTRIBUTION WIDTH-CV 19.9 % (11.5-14.5)
[2018-03-12 10:48] VITALS: BP 112/62; PULSE 87; TEMP 97.4
[2018-03-12 11:09] LABS: ANISOCYTOSIS 2+; BAND 4 % (0-10); LYMPHOCYTE 3 % (20.0-51.0); NEUTROPHILS 94 % (42.0-75.2)
[2018-03-19 10:00] VITALS: BP 103/67; PULSE 89; TEMP 98
[2018-03-19 10:06] LABS: MEAN CELL VOLUME 92 fl (80.0-100.0); MEAN CORPUSCULAR HEMOGLOBIN 30 pg (27.0-31.0); MEAN CORPUSCULAR HGB CONC 33 g/dl (33.0-37.0); MEAN PLATELET VOLUME 10.7 fl (7.4-10.4); PLATELET COUNT 170 K/mm3 (130-400); RED BLOOD COUNT 3.65 M/mm3 (4.10-5.30); REDCELL DISTRIBUTION WIDTH-CV 19.7 % (11.5-14.5)
[2018-03-19 10:17] LABS: ALBUMIN 3.8 gm/dL (3.5-5.0); BILIRUBIN,TOTAL 0.3 mg/dL (0.0-1.0); CREATININE, serum 0.76 mg/dL (0.52-1.25); POTASSIUM 4.1 mmol/L (3.4-5.0); TOTAL PROTEIN 6.6 gm/dL (6.4-8.2)
[2018-03-19 10:23] LABS: HEMATOCRIT 33.6 % (37.0-47.0)
[2018-03-19 10:39] LABS: BAND 3 % (0-10); EOSINOPHIL 2 % (0-4); LYMPHOCYTE 27 % (20.0-51.0); NEUTROPHILS 63 % (42.0-75.2); PLATELET ESTIMATE NORMAL (NORMAL)
[2018-03-19 10:41] LABS: ANISOCYTOSIS 2+
[2018-03-26 10:24] VITALS: BP 120/80; PULSE 78; TEMP 99
[2018-03-26 10:40] LABS: HEMOGLOBIN 10.8 g/dl (12.5-16.0); MEAN CELL VOLUME 94 fl (80.0-100.0); MEAN CORPUSCULAR HEMOGLOBIN 30 pg (27.0-31.0); MEAN CORPUSCULAR HGB CONC 32 g/dl (33.0-37.0); MEAN PLATELET VOLUME 9.9 fl (7.4-10.4); PLATELET COUNT 217 K/mm3 (130-400); RED BLOOD COUNT 3.62 M/mm3 (4.10-5.30); REDCELL DISTRIBUTION WIDTH-CV 19.1 % (11.5-14.5)
[2018-03-26 10:42] LABS: HEMATOCRIT 33.9 % (37.0-47.0)
[2018-03-26 11:06] LABS: BAND 15 % (0-10); EOSINOPHIL 2 % (0-4); LYMPHOCYTE 18 % (20.0-51.0); NEUTROPHILS 64 % (42.0-75.2); PLATELET ESTIMATE NORMAL (NORMAL)
[2018-03-26 11:07] LABS: ANISOCYTOSIS 1+; HYPOCHROMIA 1+
[2018-03-26 11:08] LABS: TEAR DROP CELLS 1+
[2018-04-05 10:22] VITALS: BP 109/62; PULSE 86; TEMP 98
[2018-04-05 10:30] LABS: HEMOGLOBIN 11.7 g/dl (12.5-16.0); MEAN CELL VOLUME 91 fl (80.0-100.0); MEAN CORPUSCULAR HEMOGLOBIN 30 pg (27.0-31.0); MEAN CORPUSCULAR HGB CONC 33 g/dl (33.0-37.0); MEAN PLATELET VOLUME 10.4 fl (7.4-10.4); PLATELET COUNT 202 K/mm3 (130-400); RED BLOOD COUNT 3.91 M/mm3 (4.10-5.30); REDCELL DISTRIBUTION WIDTH-CV 18.9 % (11.5-14.5)
[2018-04-05 10:31] LABS: HEMATOCRIT 35.6 % (37.0-47.0)
[2018-04-05 10:55] LABS: BAND 23 % (0-10); LYMPHOCYTE 16 % (20.0-51.0); METAMYELOCYTE 1 % (0-0); NEUTROPHILS 59 % (42.0-75.2)
[2018-04-05 10:56] LABS: DOHLE BODIES PRESENT; PLATELET ESTIMATE NORMAL (NORMAL)
[2018-04-05 10:57] LABS: TEAR DROP CELLS 1+
[2018-04-09 10:23] VITALS: BP 104/67; PULSE 75; TEMP 98
[2018-04-09 10:39] LABS: HEMOGLOBIN 10.6 g/dl (12.5-16.0); MEAN CELL VOLUME 92 fl (80.0-100.0); MEAN CORPUSCULAR HEMOGLOBIN 30 pg (27.0-31.0); MEAN CORPUSCULAR HGB CONC 33 g/dl (33.0-37.0); MEAN PLATELET VOLUME 10.6 fl (7.4-10.4); PLATELET COUNT 217 K/mm3 (130-400); RED BLOOD COUNT 3.49 M/mm3 (4.10-5.30); REDCELL DISTRIBUTION WIDTH-CV 19.1 % (11.5-14.5)
[2018-04-09 10:45] LABS: HEMATOCRIT 32.2 % (37.0-47.0)
[2018-04-09 10:50] LABS: ALBUMIN 3.6 gm/dL (3.5-5.0); BILIRUBIN,TOTAL 0.2 mg/dL (0.0-1.0); CALCIUM 8.9 mg/dL (8.4-10.2); CREATININE, serum 0.67 mg/dL (0.52-1.25); TOTAL PROTEIN 6.3 gm/dL (6.4-8.2)
[2018-04-09 11:16] LABS: BAND 21 % (0-10); BASOPHIL 1 % (0-2); LYMPHOCYTE 26 % (20.0-51.0); NEUTROPHILS 51 % (42.0-75.2); PLATELET ESTIMATE NORMAL (NORMAL); TEAR DROP CELLS 1+
[2018-04-16 10:36] VITALS: BP 120/79; PULSE 75; TEMP 97.9
[2018-04-16 10:41] LABS: HEMOGLOBIN 11.2 g/dl (12.5-16.0); MEAN CELL VOLUME 93 fl (80.0-100.0); MEAN CORPUSCULAR HEMOGLOBIN 31 pg (27.0-31.0); MEAN CORPUSCULAR HGB CONC 33 g/dl (33.0-37.0); MEAN PLATELET VOLUME 10.3 fl (7.4-10.4); PLATELET COUNT 200 K/mm3 (130-400); RED BLOOD COUNT 3.66 M/mm3 (4.10-5.30); REDCELL DISTRIBUTION WIDTH-CV 19.1 % (11.5-14.5)
[2018-04-16 10:43] LABS: HEMATOCRIT 34.1 % (37.0-47.0)
[2018-04-16 10:57] LABS: BAND 9 % (0-10); EOSINOPHIL 3 % (0-4); LYMPHOCYTE 25 % (20.0-51.0); NEUTROPHILS 59 % (42.0-75.2); PLATELET ESTIMATE NORMAL (NORMAL)
[2018-04-16 10:59] LABS: ANISOCYTOSIS 1+
[2018-04-23 10:24] LABS: HEMOGLOBIN 11.3 g/dl (12.5-16.0); MEAN CELL VOLUME 95 fl (80.0-100.0); MEAN CORPUSCULAR HEMOGLOBIN 31 pg (27.0-31.0); MEAN CORPUSCULAR HGB CONC 32 g/dl (33.0-37.0); MEAN PLATELET VOLUME 10.4 fl (7.4-10.4); PLATELET COUNT 180 K/mm3 (130-400); RED BLOOD COUNT 3.71 M/mm3 (4.10-5.30); REDCELL DISTRIBUTION WIDTH-CV 19.7 % (11.5-14.5)
[2018-04-23 10:25] LABS: HEMATOCRIT 35.2 % (37.0-47.0)
[2018-04-23 10:32] VITALS: BP 127/74; PULSE 66; TEMP 97.2
[2018-04-23 10:39] LABS: BAND 11 % (0-10); BASOPHIL 1 % (0-2); EOSINOPHIL 2 % (0-4); LYMPHOCYTE 17 % (20.0-51.0); METAMYELOCYTE 3 % (0-0); NEUTROPHILS 60 % (42.0-75.2); PLATELET ESTIMATE NORMAL (NORMAL)
[2018-04-23 10:41] LABS: ANISOCYTOSIS 1+
[2018-04-30 10:23] LABS: HEMOGLOBIN 11.4 g/dl (12.5-16.0); MEAN CELL VOLUME 94 fl (80.0-100.0); MEAN CORPUSCULAR HEMOGLOBIN 31 pg (27.0-31.0); MEAN CORPUSCULAR HGB CONC 32 g/dl (33.0-37.0); MEAN PLATELET VOLUME 10.7 fl (7.4-10.4); PLATELET COUNT 190 K/mm3 (130-400); RED BLOOD COUNT 3.73 M/mm3 (4.10-5.30); REDCELL DISTRIBUTION WIDTH-CV 18.2 % (11.5-14.5)
[2018-04-30 10:26] LABS: HEMATOCRIT 35.2 % (37.0-47.0)
[2018-04-30 10:33] VITALS: BP 129/71; PULSE 71; TEMP 98.1
[2018-04-30 10:33] LABS: ALBUMIN 3.8 gm/dL (3.5-5.0); BILIRUBIN,TOTAL 0.7 mg/dL (0.0-1.0); CALCIUM 8.5 mg/dL (8.4-10.2); CREATININE, serum 0.67 mg/dL (0.52-1.25); POTASSIUM 3.6 mmol/L (3.4-5.0); TOTAL PROTEIN 6.7 gm/dL (6.4-8.2)
[2018-04-30 10:43] LABS: BAND 3 % (0-10); EOSINOPHIL 4 % (0-4); LYMPHOCYTE 21 % (20.0-51.0); NEUTROPHILS 64 % (42.0-75.2)
[2018-04-30 10:45] LABS: PLATELET ESTIMATE NORMAL (NORMAL)
[~2018-05-07] VITALS: Ht 165.1 cm; Wt 74.3 kg
[2018-05-07 10:34] LABS: HEMOGLOBIN 11.9 g/dl (12.5-16.0); MEAN CELL VOLUME 93 fl (80.0-100.0); MEAN CORPUSCULAR HEMOGLOBIN 31 pg (27.0-31.0); MEAN CORPUSCULAR HGB CONC 33 g/dl (33.0-37.0); MEAN PLATELET VOLUME 10.8 fl (7.4-10.4); PLATELET COUNT 208 K/mm3 (130-400); REDCELL DISTRIBUTION WIDTH-CV 17.2 % (11.5-14.5)
[2018-05-07 10:35] LABS: HEMATOCRIT 36.3 % (37.0-47.0)
[2018-05-07 10:41] VITALS: BP 125/77; PULSE 60; TEMP 98.4
[2018-05-07 10:49] LABS: BAND 3 % (0-10); BASOPHIL 2 % (0-2); EOSINOPHIL 3 % (0-4); LYMPHOCYTE 23 % (20.0-51.0); NEUTROPHILS 66 % (42.0-75.2)
[2018-05-07 10:51] LABS: ANISOCYTOSIS 1+; MICROCYTOSIS 1+
[2018-05-07 10:52] LABS: PLATELET ESTIMATE NORMAL (NORMAL); TEAR DROP CELLS 1+
== END 2018-05-07 11:10 | disposition home or self-care (01) ==
LOC: EUO 10:00
PROVIDERS: Internal Medicine Medical Oncology
DX: C25.0 Malignant neoplasm of head of pancreas (principal); Z45.2 Encounter for adjustment and management of vascular access device; Z95.9 Presence of cardiac and vascular implant and graft, unspecified; Z48.00 Encounter for change or removal of nonsurgical wound dressing